=== PATIENT | female | born 1995 | race Caucasian/White ===

== ENCOUNTER 2020-03-04 11:44 | Inpatient (IN) | payer OTHER ==
[2020-03-04] MEDS ORDERED: hydrALAZINE 20 MG/ML VIAL SLOW IVP PRN ×2 (12:26→21:36)
[2020-03-04 12:27] VITALS: BMI 57.2
--- NOTE | 2020-03-04 13:08 | PDOC.FPROB ---
FMR OB H&P: HPI - History of Present Illness Chief Complaint: headache History of Present Illness: 24 y/o at 33.1 weeks sent to triage by Dr. Kauffman from clinic for evaluation of headache. She describes a 5/10 pressure like headache on the top of her head, onset last night, not relieved by fiorcet, with associated black spots in her vision prior to the onset of the headache. No changes in visual acuity, no further visual symptoms today. Endorses upper abdominal pain, worst in LUQ, and some lower abdominal cramping. Nausea but no vomiting. No sensitivity to light but some sensitivity to sound. Denies chest pain, SOB, palpitations, edema of face, hands, or legs, RUQ pain. Endorses good movement. No marcelino vaginal bleeding, LOF, contractions, vaginal discharge. She noticed some pink spotting on toilet tissue with wiping yesterday. Denies dysuria, hematuria. Does endorse some urinary frequency only occurring at nighttime. This has been complicated by multiple factors including homelessness, late to care, recent hospitalization for suspected pre-eclampsia, gestational diabetes. Per report, patient had 1T US performed possibly at [facility] ER in [place] and then presented for care in early 12/2019 during her 2T. She recalls having US for dating during 12/2019 or 01/2020. She has been homeless after from her in 06/2019. Denies history of physical or sexual trauma. She was recently hospitalized at [facility] in [place] from 02/18-02/22, where she initially went to the ED for upper abdominal pain and suicidal ideations. During that admission, she developed a headache and was reportedly diagnosed with pre-eclampsia. SI resolved and have not recurred since she recently moved in with family in [place]. No past attempts, no plan, no intent. She was discharged with rx for fiorcet and planned close outpatient f/u, but has recently moved to [place] to live with her step mother and her child from past . She plans to have her cousin adopt her child from current . Primary Care Physician: LAURA Kauffman FMR OB H&P: Current - Care : 2 Para: 1001 Gestational age: 33.1 Due date: 04/21/20 Dating Criteria: reported 1T US although records not available/late to care Course/Complications: Hospitalized at [facility] in [place] 02/18-02/22 for abdominal pain, suicidal ideations, headache. Diagnosed with pre-eclampsia, gestational DM during this hospitalization. Discharged with rx for fiorcet and plan for close outpatient f/u. - OB Labs Blood type: unknown RH: unknown Antibody Screen: unknown HIV: unknown RPR: unknown HepBsAg: unknown Quad screen: unknown Gonorrhea: unknown Chlamydia: unknown 1 hour gtt: 193 3 hour GTT: 97/192/144 FMR OB H&P: History - Past Medical History PMH: hypothyroid, depression, morbid obesity - OB History OB History: Hx 06/2018 - reports mIOL for pre-eclampsia; denies shoulder dystocia, assisted delivery; reports normal laceration; not diagnosed with GDM in past although hypoglycemia after delivery - OCEAN FISHING GUIDE History OCEAN FISHING GUIDE History: No known cattle dehorner history - Surgical History Sx History: Tonsillectomy, wisdom teeth - Social History Social History: Denies tobacco, etoh, or drug use in or before . from since 06/2019, pending divorce. Previously homeless in [place], now living with stepmother in [place] who keeps her child from her first . Denies trauma in past or current living situations. - Family History Family History: Maternal hx bipolar disorder, CKD, multiple MIs, DM, liver failure. No other known family hx. FMR OB H&P: Medications - Current Home Medications: Medication Instructions Recorded Confirmed Type Butalbital/Acetaminophen/Caffe 1 tab PO Q4HR PRN 03/04/20 03/04/20 History [Fioricet] Ferrous Gluconate 324 mg PO DAILY 03/04/20 03/04/20 History Levothyroxine Sodium 50 mcg PO DAILY 03/04/20 03/04/20 History Ondansetron [Ondansetron ODT] 4 mg PO Q4HR PRN 03/04/20 03/04/20 History Sertraline HCl 100 mg PO DAILY 03/04/20 03/04/20 History Allergies/Adverse Reactions: Allergies Allergy/AdvReac Type Severity Reaction Status Date / Time No Known Allergies Allergy Verified 03/04/20 12:15 FMR OB H&P: ROS - Review of Systems General: denies: fever/chills, night sweats, recent trauma Eyes: reports: scotomas ENT: denies: nasal congestion, rhinorrhea, sore throat Cardiovascular: denies: chest pain, palpitation, edema Respiratory: denies: cough, congestion, shortness of breath Gastrointestinal: reports: abdominal pain, cramping, nausea. denies: vomiting, diarrhea, constipation Genitourinary (Female): reports: polyuria. denies: dysuria, hematuria, vaginal discharge, vaginal pain, vaginal bleeding, contractions, vaginal pressure Musculoskeletal: denies: pain, swelling Neurologic: reports: headache. denies: numbness Integumentary: denies: rash Breast: denies: lumps, bumps, skin changes, nipple changes Hematologic/Lymphatic: denies: enlarged lymph nodes Psychological: reports: depression. denies: other (active suicidal ideation) FMR OB H&P: Vital Signs - Maternal Vital signs: BP 128/62, HR 100 - Heart Tones Baseline: 160 Variability: moderate Acceleration: present Deceleration: absent [place] contractions every: absent FMR OB H&P: Physical Exam - Physical Exam General: NAD, awake, alert and oriented HEENT: normocephalic and atraumatic, MMM, conjunctiva clear, no scleral icterus, grossly normal vision, grossly normal hearing, good dention Deviation from normal: white tongue Neck: supple, no LAD Chest: non-tender to palpation Heart: RRR, no murmurs/rubs/gallops, pulses present, no edema General: CTAB, no respiratory distress, no rales/rhonchi, no wheezing Abdomen: soft, gravid, bowel sound present Deviation from normal: mild epigastric and LUQ tenderness, obese Musculoskeletal: normal gait and station, pulses present, FROM in all four extremities Neurological: sensation to pain,touch and proprioception grossly normal, DTR +1, no clonus Skin: no rash, no jaundice Lymphatic: no unusual bruising or bleeding, no LAD Psychiatric: intact recent and remote memory, good judgement and insight, normal mood and affect - Pelvic Exam Vulva: normal hair distribution, no lesions, no blood Deviation from normal: yellow-green discharge on speculum exam Cervix: no blood Deviation from normal: strawberry cervix, visually dilated external os FMR OB H&P: A/P Disposition: sIUP @ 33.1 weeks - NOA 12/20/20 by LMP and unclear if 1T or 2T US performed in [place], records for this not currently available. - , hx in resulting in term male requiring NICU stay for respiratory problems, hypoglycemia, edema, jaundice per patient Hx pre-eclampsia Recent admission 02/18-02/22 at hospital in [place], [place] where she was evaluated for headache, discharged with diagnosis of pre-eclampsia. Also reporting hx of pre-eclampsia in previous . - Pre-eclampsia lab workup: CBC, CMP, urine protein/cr ratio - monitor blood pressure closely, treat >160/110 Headache Previously treated with fiorcet without relief. Symptoms concerning for migraine vs pre-eclampsia. - Will workup pre-eclampsia and monitor BP as above - Will treat with tylenol and monitor for improvement of symptoms - If not improved, consider reglan + benadryl Gestational DM Per 1 hr and 3 hr GTT. No currently on treatment. - consider accucheck pending CMP - consider addition of treatment pending labs Late to care First presented for care in 12/2019. Reported ED US in 1T prior to this. Records not currently available. - will get anatomy scan - will collect 1T labs: HIV, RPR, HbSAg, Hep C Ab, T+S, urine cx, G/CT swab, VP3, HSV, Varicella, Rubella, UDS Cervicitis Cervicitis visualized on speculum examination today without tenderness during swab collection. - collect urine, G/CT swab, VP3 as above tachycardia FHTs 160s with accels to 180s. - continue monitoring - maternal infectious workup as above Morbid Obesity BMI 57. Maternal weight gain this unknown. Depression Hx of suicidal ideations as recently as few weeks ago when she remained homeless. No further SI since moving with family in [place]. No past attempts, no plan or intent. - continue sertraline - continue to monitor for changes in mood, development of SI Hypothyroid - check TSH - continue levothyroxine Homelessness Previously homeless in [place]. from since 06/2019. Currently living with stepmother in [place] who cares for her first child. Denies trauma, drug use. Feels safe in current living situation. Plans to have cousin adopt baby. - will eventually need CM consult Discussed with Dr. Kan and Dr. Yi. Discussion: Date/Time: 03/04/20 1308 This H&P was discussed with [] and [] who agree with the above documentation and plan. Addendum - Attending - Attending Attestation Date/Time: 03/05/20 9452 I personally evaluated the patient and discussed the management with the team. I agree with the History, Examination, Assessment and Plan documented above with any addition or exceptions noted below. I spoke with Dr. Villeda from [place], who has seen the patient once. She tells me her 24 hour urine protein was 455 at the hospitalization, but we did not review pressures or other findings from the clinical course. The patient describes a history of what sounds like migraine headaches that she had before , and these are similar in nature but worse in severity. Retroorbital, pulsating, with a desire to be in a quiet and dark room. It apparently took them several days at [facility] in [place] to manage her headaches. Her pressures have all been normal, on the evening on 03/04. This is obviously difficult, as taking her BP accurately is fraught with difficulty in light of her super-morbid obesity. Her p/c ratio is elevated and she has overtly uncontrolled DM, which could be pregestational. We will admit, consult the tenant coordinator hospitalist rhinestone setter, monitor BPs, repeat a 24h urine protein, begin insulin, and manage her headache. My impression is that this is not preeclampsia with severe features, but we will obtain records from [facility] and remain vigilant. status is reassuring.
[2020-03-04 14:03] LABS: #Basophils 0.1 thou/uL (0.0-0.2); #Eosinphils 0.1 thou/uL (0.0-0.7); #Lymphocytes 1.6 thou/uL (1.20-3.40); #Monocytes 0.1 thou/uL (0.11-0.59); #Neutrophils 7.1 thou/uL (1.40-6.50); %Basophils 0.8 % (0.0-1.0); %Eosinophils 0.8 % (0.0-10.0); %Lymphocytes 17.9 % (21.0-51.0); %Monocytes 1.3 % (0.0-10.0); %Neutrophils 79.2 % (42.0-75.0); Hemoglobin 11.7 g/dL (12.0-16.0); Mean Corpuscular HGB CONC 34.8 g/dL (32.0-36.0); Mean Corpuscular Volume 83.5 fL (78.0-98.0); Mean Platelet Volume 10.2 fL (7.4-10.4); Platelet Count 274 thou/uL (130-400); Red Blood Cell (RBC) Count 4.02 mill/uL (4.20-5.40)
[2020-03-04] MEDS ORDERED: Acetaminophen 500 MG TAB PO SCH (14:15)
[2020-03-04 14:27] LABS: Hemoglobin A1c 7.7 % (4.0-6.0)
[2020-03-04 14:28] LABS: ALT (SGPT) 31 U/L (8-55); AST (SGOT) 29 U/L (5-34); Albumin 3.5 g/dL (3.5-5.0); Alkaline Phosphatase 151 U/L (40-110); Anion Gap 16 mmol/L (10-20); BUN (Urea Nitrogen) 10 mg/dL (7.0-18.7); Bilirubin, Total 0.3 mg/dL (0.2-1.2); Calc. Creatinine Clearance 362 mL/min (70-130); Carbon Dioxide 20 mmol/L (22-29); Chloride 101 mmol/L (98-107); Estimated GFR-MDRD Greater than 90; Globulin 4.2 g/dL (2.4-3.5); Glucose 122 mg/dL (70-105); Potassium 4.1 mmol/L (3.5-5.1); Protein, Total 7.7 g/dL (6.0-8.3); Sodium 133 mmol/L (136-145)
[2020-03-04 14:46] LABS: HBSAg Index 0.13 S/CO (0-0.99); HIV (1/2) Antibody/Antigen Non-Reactive (NonReactive); HIV 1/2 INDEX 0.09 S/CO (<1.00); Hep B Surf Ag Non-Reactive S/CO (NonReactive); Hep C IgG Ab Non-Reactive (NonReactive); Hep C Index 0.05 S/CO (0-0.79); Thyroid Stimulating Hormone 1.9816 uIU/mL (0.35-4.94)
[2020-03-04 14:50] LABS: Syphilis Antibody Index 14.95 S/CO (<1.00 Non-Reactive)
--- NOTE | 2020-03-04 15:05 | ULT ---
ULTRASOUND OBSTETRICAL COMPLETE: DATE: 03/04/2020 HISTORY: 24-year-old female. Evaluate anatomy. FINDINGS: Visualization of anatomy is limited because of maternal body habitus. Maternal adnexa: Not visualized number: paredes lie: Cephalic Maternal cervix: Not visualized, obscured. Placenta: Fundal. No placenta previa. Amniotic fluid volume: BRENDA = 13.5cm heart rate: 147 bpm The following anatomy is visualized, with no evidence of anomalies: Thoracic spine, sacrum, bladder, bilateral kidneys, cervical spine, lumbar spine, stomach. The rest of the anatomy is not visualized. biometry: Biparietal diameter (BPD): 8.4 cm 33 w 5 d Head circumference (HC): 29.8 cm 33 w 0 d Abdominal circumference (AC): 30.5 cm 34 w 3 d Femur length (FL): 6.5 cm 33 w 4 d Average ultrasound age (AUA): 33 w 5 d Estimated date of delivery (NOA): 04/17/2020 Estimated weight (EFW): 2310 g +/- 342 g IMPRESSION: 1) Live 3rd trimester intrauterine gestation. 2) Estimated gestational age of 33 weeks, 5 days 3) Vertex lie. 4) Limited study with poor visualization of anatomy due to maternal body habitus
[2020-03-04 15:06] LABS: Amphetamine Not Detected (NotDetected); Barbiturates Screen Detected (NotDetected); Benzodiazepine Screen Not Detected (NotDetected); Cocaine Metabolite Screen Not Detected (NotDetected); Medtox Control Line Valid? VALID (VALID); Medtox Reader # READER 1; Methadone Not Detected (NotDetected); Methamphetamine Not Detected (NotDetected); Opiate Screen Not Detected (NotDetected); Oxycodone Screen Not Detected (NotDetected); Phencyclidine (PCP) Not Detected (NotDetected); THC/Cannabinoid Screen Not Detected (NotDetected); Tricyclic Screen Not Detected (NotDetected)
[2020-03-04 15:30] LABS: Creatinine, Urine 190.31 mg/dL (47-110)
[2020-03-04] MEDS ORDERED: diphenhydrAMINE 50 MG/ML VIAL IVP PRN (16:32)
[2020-03-04] MEDS: Metoclopramide HCl 10 MG/2 ML VIAL IVP PRN ×5 (16:48→19:42)
[2020-03-04] MEDS ORDERED: diphenhydrAMINE 50 MG/ML VIAL ONE ×3 (17:59→18:12)
[2020-03-04] MEDS: Lactated Ringer's 1,000 ML IV SCH ×2 (18:00→18:35)
--- NOTE | 2020-03-04 18:12 | PDOC.BPN ---
- Brief Progress Note Headache persistent s/p 1 dose tylenol, reglan, benadryl. Will increase reglan/benadryl frequency for next 2 hours as needed. Started metronidazole for BV. Consulted Ob Dr. Gant, appreciate help with this case. Has had one BP >140/90 but no severe range pressures. Urine protein/cr ratio 0.74 Requested records from [facility]. Parvez Mcintyre PGY1
[2020-03-04] MEDS: diphenhydrAMINE 50 MG/ML VIAL IVP SCH ×2 (18:15→19:16)
[2020-03-04] MEDS ORDERED: Magnesium Sulfate 3 GM in Sodium Chloride 0.9% 100 ML IVPB SCH (19:45)
[2020-03-04] MEDS: metroNIDAZOLE 500 MG TAB PO SCH (20:27)
[2020-03-04 22:49] LABS: Syphilis Antibody INDETERMINATE (Nonreactive)
--- NOTE | 2020-03-05 01:08 | CON ---
DATE OF CONSULTATION: 03/04/2020 CHIEF COMPLAINT: Headache. HISTORY OF PRESENT ILLNESS: The patient is a 24-year-old G2, P1 female with an intrauterine at 33 weeks and 1 day, was referred to the hospital from her clinic visit today, where she received her first visit here locally. The patient was sent to the hospital for concerns of headache in the setting of a previous diagnosis of mild preeclampsia. The patient reports that she was diagnosed with mild preeclampsia, gestational diabetes, depression during a hospitalization up in [place] recently. She has expressed suicidal ideation at that time. Patient's social history is complicated by a recent break-up with her where she was found homeless, which has recently been resolved by moving in with her stepmother in [place], [place]. The patient reports that her headache began yesterday. She reports it as being on the top and frontal part of her head, pulsatile, worse with activity and movement, light sensitive and sound sensitive with accompanying nausea. The patient reports she is having difficulty sleeping, but denies any excessive stress where she is currently staying. The patient has been taking daily Fioricet which was prescribed to her from the hospitalization recently. She takes it mainly at night before she goes to bed. In asking about her intake today, she said that she has only had a can of Pepsi and something small to eat. She also reports that she drinks plenty of water. She also reports that she checks her blood sugars fasting and 2-hour postprandial, but has a difficult time reporting what those blood sugars are. The patient denies fever, cough, chest pain, shortness of breath. She does report some vision changes. She reports nausea. Denies vomiting. Denies constipation or diarrhea. Denies any new rashes, hip problems, knee problems, muscle weakness. Denies change in discharge, vaginal bleeding or leakage of fluid, urinary urgency or frequency. PAST MEDICAL HISTORY: Complicated by preeclampsia with hospitalization; late entry to care; gestational diabetes, diet controlled; depression with history of suicidal ideation; thyroid disorder; and anemia. PAST SURGICAL HISTORY: Tonsillectomy and wisdom teeth extraction. OB HISTORY: The patient reports a previous term delivery with an antepartum course complicated and was seen by high-risk physician, but unsure why. SOCIAL HISTORY: Denies drug, alcohol, or tobacco use. She is currently living with her stepmother and is pending divorce. PHYSICAL EXAMINATION: VITAL SIGNS: Blood pressures from her stay have ranged from one teens to 130s over 60s and 70s. She has had one elevated pressure at 144/64, which is very isolated. Pulses have ranged in the 70s to 100s, saturating 98% on room air. GENERAL: She appears to be in no acute distress. She is alert, oriented, cooperative, and pleasant to interact. HEENT: Head is normocephalic and atraumatic. LUNGS: Clear to auscultation bilaterally. HEART: Regular rate and rhythm. ABDOMEN: Gravid, soft, nontender. EXTREMITIES: Nontender, nonedematous. heart tracing shows the fetus with a baseline in the 150s with moderate long-term variability, positive 15 x 15 accelerations. Tocometer shows some irritability, but no contraction pattern. ultrasound today shows fetus in vertex presentation, approximately 2300 g. LABORATORY DATA: White count of 9, hemoglobin 11.7, hematocrit 33.6, and platelets of 274,000. Sodium 133, potassium 4.1, BUN 16, creatinine 0.65, glucose of 122. Hemoglobin A1c of 7.7, calcium of 9.0, AST of 29, ALT of 31. TSH of 1.98. Total random protein of 145. Total urine creatinine of 190 with a ratio of approximately 0.7. Urinalysis, drug screen is positive for barbiturates. Serology shows syphilis indeterminate test screening with RPR titer of 1-2. Confirmatory testing is pending. Hepatitis B surface antigen is nonreactive. Hepatitis C antibody is nonreactive. HIV is nonreactive. ASSESSMENT AND PLAN: The patient is a 24-year-old female with a previous diagnosis at a previous hospitalization of mild preeclampsia, new onset gestational diabetes, depression, suicidal ideation. Given her late entry to care and her complicated social history, it is unclear whether this history of mild preeclampsia is truly her diagnosis or if this is evidence of chronic hypertension or if she truly has mild preeclampsia with proteinuria. The patient's blood pressures here have been within normal limits. She has no clear evidence of worsening disease or even clear evidence of mild preeclampsia. She does have a proteinuria which may or may not be related to her blood pressures directly as a complication. She may actually have chronic hypertension with proteinuria just not diagnosed in time to make that clear decision. Unfortunately, the patient's headache, which classically sounds like migraine headache, was unsuccessfully treated with Reglan and Benadryl protocol. She also was bolused 3 g of magnesium and reports that that also did not resolve her headache. The patient does not appear to be in any distress. However, given her unclear history and the presence of her headache, recommendations of the patient to be put in observation until those records can be obtained and better understanding of her history be ascertained. Diagnosis of preeclampsia is in question. Patient's headache seems to be unrelated and by history sounds to be more consistent with migraine headache. Of concern in her lab work is the proteinuria, but also her blood sugar readings. During her stay, the patient can get good blood sugar control. Once her records can be acquired, review of that information will be important with determining future course. If the patient is demonstrating preeclampsia with severe features due to headache, indication would be delivery. Job ID: [id number] [facility]
[2020-03-05] MEDS ORDERED: Dextrose 50% Abboject 50 ML SYRINGE SLOW IVP PRN (04:46)
[2020-03-05] MEDS ORDERED: Dextrose 5% in Water 1,000 ML IV PRN (04:46)
[2020-03-05] MEDS: HumaLOG 300 UNITS/3 ML VIAL SC PRN ×2 (04:56→21:24)
[2020-03-05] MEDS: Lactated Ringer's 1,000 ML IV SCH ×2 (05:27→13:30)
[2020-03-05] MEDS ORDERED: Acetaminophen 500 MG TAB PO SCH (06:15)
[2020-03-05] MEDS ORDERED: diphenhydrAMINE 50 MG/ML VIAL ONE (06:20)
[2020-03-05] MEDS: Metoclopramide HCl 10 MG/2 ML VIAL IVP PRN (06:26)
[2020-03-05] MEDS ORDERED: diphenhydrAMINE 25 MG in Sodium Chloride 0.9% 50 ML IVPB SCH (06:45)
[2020-03-05] MEDS ORDERED: diphenhydrAMINE 50 MG/ML VIAL IVP SCH (07:00)
--- NOTE | 2020-03-05 08:29 | PDOC.FM ---
- Subjective Subjective: No acute overnight events. She has continued to have headache despite mulitple doses of benadryl, reglan, and tylenol, although she does report that her headache is improved from a 10/10 to a 5/10 with her most recent dose of tylenol/bendaryl/reglan around 0630 this AM. She denies any chest pain, SOB, abdominal pain, swelling, further vision symptoms. - Objective MAR Reviewed: Yes Vital Signs & Weight: Vital Signs (12 hours) Temp 03/04/20 21:35 98.3 F Weight Weight 170.551 kg Result Diagrams: 03/04/20 13:49 03/04/20 13:48 EKG Reviewed by me: Yes Phys Exam - Physical Examination Constitutional: NAD appears tired HEENT: moist MMs Neck: supple Respiratory: clear to auscultation bilateral Cardiovascular: RRR, no significant murmur Gastrointestinal: soft, non-tender gravid Musculoskeletal: no edema, pulses present Neurological: non-focal, moves all 4 limbs patellar reflexes 1+ bilat, no clonus Psychiatric: normal affect, A&O x 3 Skin: no rash Dx/Plan - Plan Plan: sIUP @ 33.1 weeks - NOA 04/21/20 by LMP and unclear if 1T or 2T US performed in [place], records for this not currently available. - , hx in resulting in term male requiring NICU stay for respiratory problems, hypoglycemia, edema, jaundice per patient Hx pre-eclampsia Recent admission 02/18-02/22 at hospital in [place], [place] where she was evaluated for headache, discharged with diagnosis of pre-eclampsia. Also reporting hx of pre-eclampsia in previous . Workup so far significant for elevated pr/cr ratio of 0.74, other labs wnl. Unclear if this is chronic HTN with proteinuria vs pre-eclampsia w/severe features. - consulted packaging machine supplies distributor, appreciate recommendations - f/u records request - continue to monitor BP, tx >160/100. One BP 144/64, the rest have been wnl, most recent 118/55. - check 24 h urine protein Hx syphilis Known hx syphilis in 2014 which was treated and most recent titer 1:2 per report. - repeat titer 1:2 this admission Headache Previously treated with fiorcet without relief. Symptoms concerning for migraine vs pre-eclampsia. Persistent headache despite tx with tylenol/reglan/benadryl, although improving. - continue prn treatment - f/u records for recent w/u in [place] Gestational DM Per 1 hr and 3 hr GTT. Not currently on treatment. Hga1c 7.7%. - added SSI overnight - will discuss starting metformin vs insulin with patient today Late to care First presented for care in 12/2019. Reported ED US in 1T prior to this. Records not currently available. - will get anatomy scan - Neg: UDS, HIV, HbSAg, Hep C Ab - f/u 1T labs :urine cx, G/CT swab, HSV, Varicella, Rubella Bacterial vaginitis Noted on VP3 - started metronidazole 500 mg BID x 7 days (03/04) Cervicitis Cervicitis visualized on speculum examination today without tenderness during swab collection. - collect urine, G/CT swab, VP3 as above tachycardia, resolved FHT now 135/mod variability/+accels - continue monitoring Morbid Obesity BMI 57. Maternal weight gain this unknown. Depression Hx of suicidal ideations as recently as few weeks ago when she remained jeremiah eless. No further SI since moving with family in [place]. No past attempts, no plan or intent. - continue sertraline - continue to monitor for changes in mood, development of SI Hypothyroid - check TSH - continue levothyroxine Homelessness Previously homeless in [place]. from since 06/2019. Currently living with stepmother in [place] who cares for her first child. Denies trauma, drug use. Feels safe in current living situation. Plans to have cousin adopt baby. - will eventually need CM consult Addendum - Attending - Attending Attestation Date/Time: 03/05/20 5002 I personally evaluated the patient and discussed the management with the team. I agree with the History, Examination, Assessment and Plan documented above with any addition or exceptions noted below. The patient tells me her headache is gone currently. No SAMANTA/RUQ pain. She is feeling good. Await records, monitor BP, complete 24h urine. Qshift NST (mBPP normal yesterday) and likely BPP prior to dc if she meets criteria.
[2020-03-05] MEDS ORDERED: Non-Formulary Item 1 EACH (Ferrous Gluconate [Ferrous Gluconate] 324 MG Tablet) PO SCH (09:00)
[2020-03-05] MEDS: Ferrous Gluconate 324 MG TAB PO SCH (09:03)
[2020-03-05] MEDS: Levothyroxine Sodium 50 MCG TAB PO SCH (09:04)
[2020-03-05] MEDS: metroNIDAZOLE 500 MG TAB PO SCH ×2 (09:07→21:22)
[2020-03-05] MEDS ORDERED: Insulin Glargine 40 UNITS in Pre-Filled Syringe 1 EACH SC SCH ×2 (10:32→10:45)
[2020-03-05] MEDS ORDERED: HumaLOG 300 UNITS/3 ML VIAL SC SCH ×2 (10:45→17:00)
--- NOTE | 2020-03-05 14:26 | PDOC.BPN ---
- Brief Progress Note Encounter Date: 03/05/20 Encounter Time: 12:00 Received partial records from [facility] in [place], on paper chart. [facility] has been contacted to request the remainder of the record not yet sent. Significant findings: sIUP: - Documented US performed on 10/25/19 with estimated due date of 04/15/20 by this 14.6 wk sono. This changes her dating from 33.2 wks today to 34.1 wks today. Hx Pre-eclampsia: - Protein/Cr ratio at recent 02/18-02/22 admission was 0.64, similar to protein/cr ratio of 0.74 here. - Intermittently elevated blood pressures with SBP in 140s dating back as far as 07/2019, before , suggesting patient may have undiagnosed cHTN before . Gestational DM: - BS of 126 in 07/2019. This is in isolation is not diagnostic of type 2 DM but suggest she may have had undiagnosed T2DM prior to . - Today, started lantus 40u qAM and 5u humalog w/ meals. Check fasting AM and 2 hr post-prandial BS. Will adjust therapy as needed. Depression w/SI: - Admitted inpatient for suicidal ideations in 07/2019. At that time, patient admitted history of past suicide attempts and plan including overdose or jumping from bridge. Per records, she has attempted cutting herself in the past. B. Rehg, PGY-1
[2020-03-05] MEDS ORDERED: Insulin Regular 300 UNITS/3 ML VIAL SC PRN (21:10)
[2020-03-05] MEDS ORDERED: Melatonin 3 MG TAB PO PRN (21:12)
[2020-03-05] MEDS ORDERED: HumaLOG 300 UNITS/3 ML VIAL SC PRN (22:14)
[2020-03-05 23:26] LABS: Urine Total Volume 3960 mL (600-1600)
[2020-03-05 23:45] LABS: Protein, Urine Less than 10 mg/dL (1-14)
[2020-03-06] MEDS: Metoclopramide HCl 10 MG/2 ML VIAL IVP PRN ×2 (00:47→14:06)
[2020-03-06] MEDS: metroNIDAZOLE 500 MG TAB PO SCH ×2 (08:47→19:11)
[2020-03-06] MEDS: Ferrous Gluconate 324 MG TAB PO SCH (08:47)
[2020-03-06] MEDS: Levothyroxine Sodium 50 MCG TAB PO SCH (08:48)
[2020-03-06] MEDS ORDERED: Insulin Glargine 40 UNITS in Pre-Filled Syringe 1 EACH SC SCH (09:00)
[2020-03-06] MEDS ORDERED: Insulin Glargine 50 UNITS in Pre-Filled Syringe 1 EACH SC SCH (09:00)
--- NOTE | 2020-03-06 09:19 | PDOC.FM ---
- Subjective Subjective: Headache overnight, now resolved with pharmacologic tx. No chest pain, SOB, abd pain, edema this AM. No concerns. Reports moods are doing ok, denies depression or SI. - Objective Vital Signs & Weight: Weight Weight 170.551 kg Result Diagrams: 03/07/20 05:44 03/07/20 05:44 Phys Exam - Physical Examination Constitutional: NAD HEENT: moist MMs, sclera anicteric Neck: supple Respiratory: clear to auscultation bilateral Cardiovascular: RRR Gastrointestinal: soft, non-tender Musculoskeletal: no edema, pulses present Neurological: non-focal, moves all 4 limbs 1+ bilat patellar reflexes, no clonus Psychiatric: normal affect, A&O x 3 Deviation from normal: denies mood problems, SI Skin: no rash Dx/Plan - Plan Plan: sIUP @ 33.1 weeks - NOA 04/21/20 by LMP and unclear if 1T or 2T US performed in [place], records for this not currently available. - , hx in resulting in term male requiring NICU stay for respiratory problems, hypoglycemia, edema, jaundice per patient Hx pre-eclampsia Recent admission 02/18-02/22 at hospital in [place], [place] where she was evaluated for headache, discharged with diagnosis of pre-eclampsia. Also reporting hx of pre-eclampsia in previous . Workup so far significant for elevated pr/cr ratio of 0.74, other labs wnl. Unclear if this is chronic HTN with proteinuria vs pre-eclampsia w/severe features. - consulted legal executive assistant, appreciate recommendations - f/u records request - continue to monitor BP, tx >160/100. One BP 144/64, the rest have been wnl during this admission. -24 hr urine protein collected, "test not performed" in results, will clarify with lab Hx syphilis Known hx syphilis in 2014 which was treated and most recent titer 1:2 per report. - repeat titer 1:2 this admission Headache Now resolved after tx with tylenol, reglan, benadryl. Previously treated with fiorcet without relief. Symptoms concerning for migraine vs pre-eclampsia. - continue prn treatment - f/u records for recent w/u in [place] Gestational DM A2 Per 1 hr and 3 hr GTT. Not on treatment on admission, insulin naive. Hga1c 7.7%. Started on 40u lantus with 10u short acting WM yesterday, remained above goal. - increased to 50 u lantus this AM - short acting meal time increased to 15 u to be given within 5 min of eating to avoid hypoglycemia - accuchecks qAM and 2 hr post prandial - adjust insulin pending accuchecks - CM consulted for help with diabetic supplies, will need outpatient insulin tx Late to care First presented for care in 12/2019. Reported ED US in 1T prior to this. Partial records sent despite multiple requests. Anatomy scan performed and limited due to patient body habitus. Spine, bladder, kidneys, stomach wnl. Heart and other structures not visualized. Miller cephalic fetus. - Neg: UDS, HIV, HbSAg, Hep C Ab, urine cx - f/u 1T labs : G/CT swab, HSV, Varicella, Rubella - GBS pending Bacterial vaginitis Noted on VP3 - started metronidazole 500 mg BID x 7 days (03/04) Cervicitis Cervicitis visualized on speculum examination today without tenderness during swab collection. - collect urine, G/CT swab, VP3 as above tachycardia, resolved FHT now 135/mod variability/+accels - continue monitoring Morbid Obesity BMI 57. Maternal weight gain this unknown. Depression Hx of suicidal ideations as recently as few weeks ago when she remained homeless. No further SI since moving with family in [place]. No past attempts, no plan or intent. - continue sertraline - continue to monitor for changes in mood, development of SI Hypothyroid - check TSH - continue levothyroxine Homelessness Previously homeless in [place]. from since 06/2019. Currently living with stepmother in [place] who cares for her first child. Denies trauma, drug use. Feels safe in current living situation. Plans to have cousin adopt baby. - CM consulted Addendum - Attending - Attending Attestation Date/Time: 03/07/20 0832 I personally evaluated the patient and discussed the management with the team. I agree with the History, Examination, Assessment and Plan documented above with any addition or exceptions noted below. Reassuring pressures. Headache resolved. 24h urine protein negative, suggesting initial proteinuria may not be 2/2 preeclampsia but cHTN vs uncontrolled DM. Continue to titrate insulin for uncontrolled gDM vs BDM.
[2020-03-06] MEDS: HumaLOG 300 UNITS/3 ML VIAL SC SCH ×3 (10:01→19:12)
[2020-03-06 12:01] LABS: #Eosinphils 0.1 thou/uL (0.0-0.7); #Lymphocytes 1.4 thou/uL (1.20-3.40); #Monocytes 0.3 thou/uL (0.11-0.59); #Neutrophils 6.4 thou/uL (1.40-6.50); %Eosinophils 0.8 % (0.0-10.0); %Lymphocytes 17.4 % (21.0-51.0); %Monocytes 3.7 % (0.0-10.0); Hemoglobin 10.8 g/dL (12.0-16.0); Mean Corpuscular Hemoglobin 28.2 pg (27.0-31.0); Mean Corpuscular Volume 85.5 fL (78.0-98.0); Mean Platelet Volume 10.3 fL (7.4-10.4); Platelet Count 247 thou/uL (130-400); RBC Distribution Width 15.2 % (11.5-14.5); Red Blood Cell (RBC) Count 3.82 mill/uL (4.20-5.40); White Blood Cell (WBC) Count 8.3 thou/uL (4.8-10.8)
[2020-03-06 12:38] LABS: ALT (SGPT) 27 U/L (8-55); AST (SGOT) 33 U/L (5-34); Albumin 3.2 g/dL (3.5-5.0); Alkaline Phosphatase 146 U/L (40-110); Anion Gap 16 mmol/L (10-20); BUN (Urea Nitrogen) 8 mg/dL (7.0-18.7); Bilirubin, Total 0.3 mg/dL (0.2-1.2); Calc. Creatinine Clearance 393 mL/min (70-130); Calcium 8.9 mg/dL (7.8-10.44); Carbon Dioxide 20 mmol/L (22-29); Chloride 101 mmol/L (98-107); Estimated GFR-MDRD Greater than 90; Globulin 3.9 g/dL (2.4-3.5); Glucose 158 mg/dL (70-105); Potassium 3.9 mmol/L (3.5-5.1); Protein, Total 7.1 g/dL (6.0-8.3); Sodium 133 mmol/L (136-145)
[2020-03-06 13:00] LABS: SARS-CoV-2 MS2 Positive; SARS-CoV-2 N Gene Negative; SARS-CoV-2 S Gene Negative; SARS-CoV-2 by NAA Not Detected (NotDetected); SARS-CoV-2 orf1ab Negative
[2020-03-06] MEDS ORDERED: diphenhydrAMINE 50 MG/ML VIAL IVP PRN (13:32)
[2020-03-06] MEDS ORDERED: HumaLOG 300 UNITS/3 ML VIAL SC SCH (14:30)
[2020-03-06] MEDS: Acetaminophen 500 MG TAB PO PRN (17:44)
--- NOTE | 2020-03-06 18:31 | ULT ---
BIOPHYSICAL PROFILE: 03/06/20 COMPARISON: 24-year-old female. TECHNIQUE: Multiplanar woods scale sonographic imaging of the gravid uterus obtained. FINDINGS: The region of the cervix is not well assessed on this exam. The placenta is grossly unremarkable with no evidence for previa or abruption. Single intrauterine gestation present demonstrating a vertex pr esentation per the preforming pulp cooker. heart rate is 143 beats per minute. Amniotic fluid i ndex is 18.3 cm. The pulp cooker reports a 2 out of 2 score for tone, breathing, movement, and amnio tic fluid. IMPRESSION: 8 out of 8 biophysical profile score. POS: JWCyndy
[2020-03-06 21:40] LABS: ALT (SGPT) 27 U/L (8-55); AST (SGOT) 29 U/L (5-34); Albumin 3.2 g/dL (3.5-5.0); Alkaline Phosphatase 151 U/L (40-110); Anion Gap 17 mmol/L (10-20); BUN (Urea Nitrogen) 7 mg/dL (7.0-18.7); Bilirubin, Total 0.2 mg/dL (0.2-1.2); Calc. Creatinine Clearance 352 mL/min (70-130); Calcium 8.9 mg/dL (7.8-10.44); Carbon Dioxide 20 mmol/L (22-29); Chloride 100 mmol/L (98-107); Estimated GFR-MDRD Greater than 90; Globulin 3.9 g/dL (2.4-3.5); Glucose 174 mg/dL (70-105); Lipase 101 U/L (8-78); Potassium 3.7 mmol/L (3.5-5.1); Protein, Total 7.1 g/dL (6.0-8.3); Sodium 133 mmol/L (136-145)
[2020-03-06] MEDS ORDERED: Morphine 2 MG/ML VIAL SLOW IVP PRN ×2 (22:39→23:20)
--- NOTE | 2020-03-06 22:56 | ULT ---
Exam: Right upper quadrant ultrasound: HISTORY: Epigastric abdominal pain. COMPARISON: None FINDINGS: Liver: Increased echogenicity suggesting hepatic steatosis. The liver is enlarged measuring 26.9 cm i n craniocaudal dimensions. There is limited evaluation of the liver due to the hepatic steatosis, but no definite focal hepatic lesion is appreciated. Gallbladder: No evidence of gallbladder calculi, gallbladder wall thickening, or pericholecystic flui d. Common bile duct: The common duct is normal in caliber measuring 0.4 cm in diameter. Pancreas: Mostly obscured secondary to shadowing from bowel gas. Right kidney: Right kidney demonstrates a normal sonographic appearance. The right kidney measures 1 3.1 cm in length. IVC: The visualized IVC demonstrates a normal sonographic appearance. IMPRESSION: 1. Hepatomegaly with liver measuring 26.9 cm in craniocaudal dimensions and evidence of hepatic steat osis. 2. No gallbladder calculi are seen, and the common duct is normal in caliber.
--- NOTE | 2020-03-06 22:57 | PDOC.BPN ---
- Brief Progress Note Encounter Date: 03/06/20 Encounter Time: 10:30 Was contacted by patient's nurse regarding abdominal pain. Assessed patient who explained she was experiencing stabbing epigastric pain that was radiating to her back and worse when eating. The pain felt similar to episodes of pancreatitis she has had previously with this and the one before. CMP, lipase, RUQ ultrasound order which revealed lipase of 101, normal LFTs, and normal gallbladder. Official read on RUQ ultrasound not yet available. After further discussion with Dr. Stephens decided to initiate treatment for pancreatitis: made patient NPO, fluids, morphine for pain. Will check CBC and lipids. Recheck CBC, CMP in AM.
[2020-03-06 23:17] LABS: #Basophils 0.1 thou/uL (0.0-0.2); #Eosinphils 0.1 thou/uL (0.0-0.7); #Lymphocytes 1.9 thou/uL (1.20-3.40); #Monocytes 0.5 thou/uL (0.11-0.59); #Neutrophils 4.6 thou/uL (1.40-6.50); %Basophils 0.7 % (0.0-1.0); %Eosinophils 1.4 % (0.0-10.0); %Lymphocytes 26.7 % (21.0-51.0); %Monocytes 6.9 % (0.0-10.0); %Neutrophils 64.3 % (42.0-75.0); Hemoglobin 10.6 g/dL (12.0-16.0); Mean Corpuscular HGB CONC 33.6 g/dL (32.0-36.0); Mean Corpuscular Hemoglobin 28.4 pg (27.0-31.0); Mean Corpuscular Volume 84.5 fL (78.0-98.0); Mean Platelet Volume 10.4 fL (7.4-10.4); Platelet Count 253 thou/uL (130-400); RBC Distribution Width 15.2 % (11.5-14.5); Red Blood Cell (RBC) Count 3.73 mill/uL (4.20-5.40); White Blood Cell (WBC) Count 7.2 thou/uL (4.8-10.8)
[2020-03-06 23:36] LABS: Cardiac Risk 11.8 (Less than 4.5)
[2020-03-06] MEDS: Morphine 4 MG/ML VIAL SLOW IVP PRN (23:53)
[2020-03-06] MEDS: Lactated Ringer's 1,000 ML IV SCH (23:54)
[2020-03-07] MEDS: Acetaminophen 500 MG TAB PO PRN (03:10)
[2020-03-07] MEDS: Lactated Ringer's 1,000 ML IV SCH ×4 (03:12→17:37)
[2020-03-07] MEDS: Morphine 4 MG/ML VIAL SLOW IVP PRN ×4 (03:50→19:39)
[2020-03-07 06:00] LABS: #Basophils 0.1 thou/uL (0.0-0.2); #Eosinphils 0.1 thou/uL (0.0-0.7); #Lymphocytes 1.8 thou/uL (1.20-3.40); #Monocytes 0.4 thou/uL (0.11-0.59); #Neutrophils 4.8 thou/uL (1.40-6.50); %Basophils 0.9 % (0.0-1.0); %Eosinophils 1.4 % (0.0-10.0); %Monocytes 5.5 % (0.0-10.0); %Neutrophils 67.3 % (42.0-75.0); Hemoglobin 10.2 g/dL (12.0-16.0); Mean Corpuscular HGB CONC 33.4 g/dL (32.0-36.0); Mean Corpuscular Hemoglobin 28.3 pg (27.0-31.0); Mean Corpuscular Volume 84.8 fL (78.0-98.0); Platelet Count 246 thou/uL (130-400); RBC Distribution Width 15.2 % (11.5-14.5); Red Blood Cell (RBC) Count 3.61 mill/uL (4.20-5.40); White Blood Cell (WBC) Count 7.2 thou/uL (4.8-10.8)
[2020-03-07 06:26] LABS: ALT (SGPT) 24 U/L (8-55); AST (SGOT) 26 U/L (5-34); Albumin 2.9 g/dL (3.5-5.0); Alkaline Phosphatase 134 U/L (40-110); Anion Gap 14 mmol/L (10-20); BUN (Urea Nitrogen) 6 mg/dL (7.0-18.7); Bilirubin, Total 0.2 mg/dL (0.2-1.2); Calc. Creatinine Clearance 406 mL/min (70-130); Calcium 8.7 mg/dL (7.8-10.44); Carbon Dioxide 21 mmol/L (22-29); Chloride 103 mmol/L (98-107); Estimated GFR-MDRD Greater than 90; Globulin 3.4 g/dL (2.4-3.5); Glucose 101 mg/dL (70-105); Lipase 49 U/L (8-78); Potassium 3.7 mmol/L (3.5-5.1); Protein, Total 6.3 g/dL (6.0-8.3); Sodium 134 mmol/L (136-145)
--- NOTE | 2020-03-07 08:07 | PDOC.FM ---
- Subjective Subjective: Overnight developed epigastric/LUQ pain. Patient made NPO due to concern for pancreatitis, RUQ US performed with no GB pathology. this morning, she is still having some abdominal pain which is somewhat improved from last night. denies reflux, sour taste in the mouth. she has some appetite this AM. - Objective Vital Signs & Weight: Vital Signs (12 hours) Temp Pulse Resp BP Pulse Ox 03/07/20 07:42 98.4 F 83 20 121/59 L 96 03/07/20 03:16 98.0 F 82 18 102/70 03/06/20 23:56 98.1 F 84 18 128/80 Weight Weight 170.551 kg I&O: 03/06/20 03/07/20 03/08/20 06:59 06:59 06:59 Output Total 500 Balance -500 Result Diagrams: 03/07/20 05:44 03/07/20 05:44 Dx/Plan - Plan Plan: sIUP @ 34.3 weeks - NOA 04/15/20 per US performed 10/25/19 in records from - , hx in resulting in term male requiring NICU stay for respiratory problems, hypoglycemia, edema, jaundice per patient - GBS pos on screen collected 03/04/20 Hx pre-eclampsia Recent admission 02/18-02/22 at hospital in [place], [place] where she was evaluated for headache, discharged with diagnosis of pre-eclampsia. Also reporting hx of pre-eclampsia in previous . Workup so far significant for elevated pr/cr ratio of 0.74, other labs wnl. Unclear if this is chronic HTN with proteinuria vs pre-eclampsia w/severe features. - consulted featherer, appreciate recommendations - f/u records request - continue to monitor BP, tx >160/100. One BP 144/64, the rest have been wnl during this admission. -24 hr urine protein collected, "test not performed" in results, will clarify with lab Abd pain r/o pancreatitis Mildly elevated lipase with abdominal pain. Kept NPO overnight. Hx pancreatitis in past and early in this per patient. Elevated triglycerides. No GB pathology on RUQ US. Lipase not 3 x upper limit normal, low suspicion for true pancreatitis. - advance diet as tolerated today and monitor sx Hypertriglyceridemia Recommend dietary intervention Hepatic steatosis RUQ revealing hepatomegaly, hepatic steatosis. Suspect NAFLD. Hx syphilis Known hx syphilis in 2014 which was treated and most recent titer 1:2 per report. - repeat titer 1:2 this admission Headache Now resolved after tx with tylenol, reglan, benadryl. Previously treated with fiorcet without relief. Symptoms concerning for migraine vs pre-eclampsia. - continue prn treatment - f/u records for recent w/u in [place] Gestational DM A2 Per 1 hr and 3 hr GTT. Not on treatment on admission, insulin naive. Hga1c 7.7%. Started on 40u lantus with 10u short acting WM yesterday, remained above goal. - increased lantus to 50 u yesterday, will decrease to 40 u today due to decreased PO intake while NPO; continue humalog 20 u w/meals - accuchecks qAM and 2 hr post prandial - will need to be on 50 u lantus qAM upon discharge Late to care First presented for care in 12/2019. Reported ED US in 1T prior to this. Partial records sent despite multiple requests. Anatomy scan performed and limited due to patient body habitus. Spine, bladder, kidneys, stomach wnl. Heart and other structures not visualized. Miller cephalic fetus. - Neg: UDS, HIV, HbSAg, Hep C Ab, urine cx - f/u 1T labs : G/CT swab, HSV, Varicella, Rubella - GBS postive 03/04/20 Varicella non-immune Equivocal titer not meeting threshold for immunity. Will need post vaccination. Bacterial vaginitis Noted on VP3 - started metronidazole 500 mg BID x 7 days (03/04) Cervicitis Cervicitis visualized on speculum examination today without tenderness during swab collection. - collect urine, G/CT swab, VP3 as above tachycardia, resolved FHT now 135/mod variability/+accels. All monitoring has been reassuring, now discontinued. Morbid Obesity BMI 57. Maternal weight gain this unknown. Depression Hx of suicidal ideations as recently as few weeks ago when she remained homeless. No further SI since moving with family in [place]. No past attempts, no plan or intent. - continue sertraline - continue to monitor for changes in mood, development of SI Hypothyroid - check TSH - continue levothyroxine Homelessness Previously homeless in [place]. from since 06/2019. Currently living with stepmother in [place] who cares for her first child. Denies trauma, drug use. Feels safe in current living situation. Plans to have cousin adopt baby. - CM consulted Addendum - Attending - Attending Attestation Date/Time: 03/07/20 [id number] I personally evaluated the patient and discussed the management with the team. I agree with the History, Examination, Assessment and Plan documented above with any addition or exceptions noted below. Patient with relatively negative workup for preeclampsia, and certainly for severe features. She is c/o stomach/back pain this morning and vomited x 1. Will continue to titrate insulin in light of now NPO status and monitor.
[2020-03-07] MEDS: HumaLOG 300 UNITS/3 ML VIAL SC SCH ×3 (09:00→17:35)
[2020-03-07] MEDS: Ferrous Gluconate 324 MG TAB PO SCH (09:16)
[2020-03-07] MEDS: metroNIDAZOLE 500 MG TAB PO SCH ×2 (09:16→19:39)
[2020-03-07] MEDS: Levothyroxine Sodium 50 MCG TAB PO SCH (09:17)
[2020-03-07] MEDS: Ondansetron PF 4 MG/2 ML Vial IVP PRN ×2 (12:27→19:39)
[2020-03-07] MEDS: Insulin Glargine 40 UNITS in Pre-Filled Syringe 1 EACH SC SCH (12:28)
[2020-03-07] MEDS ORDERED: Lidocaine 2% Viscous Solution 10 ML, Aluminum & Magnesium Hydroxide 30 ML SSW SCH (12:45)
[2020-03-07] MEDS: Famotidine 20 MG TAB PO SCH (19:39)
[2020-03-08] MEDS: Morphine 4 MG/ML VIAL SLOW IVP PRN (01:14)
[2020-03-08] MEDS: Lactated Ringer's 1,000 ML IV SCH ×2 (01:16→04:51)
--- NOTE | 2020-03-08 07:05 | PDOC.FM ---
- Subjective Subjective: pt resting comfortably upon entry to room. awakened. Denies abd pain. states she did well last night. no N/V episodes wants to drink and try diet today Denies DENNEY. NST reactive at shift change last night. no overnight events. - Objective MAR Reviewed: Yes Vital Signs & Weight: Vital Signs (12 hours) Temp Pulse Resp BP Pulse Ox 03/08/20 04:00 97.5 F L 66 16 110/58 L 03/08/20 00:00 98.4 F 64 16 117/56 L 03/07/20 19:30 98.8 F 76 12 108/55 L 97 Weight Weight 170.551 kg I&O: 03/06/20 03/07/20 03/08/20 06:59 06:59 06:59 Output Total 500 Balance -500 Result Diagrams: 03/07/20 05:44 03/07/20 05:44 EKG Reviewed by me: Yes (wnl) Phys Exam - Physical Examination Constitutional: NAD HEENT: moist MMs, sclera anicteric Neck: supple, full ROM Respiratory: no wheezing, no rales, no rhonchi, clear to auscultation bilateral Cardiovascular: RRR, no significant murmur Gastrointestinal: soft, non-tender, no distention, positive bowel sounds obses Musculoskeletal: no edema, pulses present Neurological: non-focal, normal sensation, moves all 4 limbs Psychiatric: A&O x 3 Skin: no rash, normal turgor, cap refill <2 seconds Dx/Plan (1) Gestational diabetes mellitus Code(s): O24.419 - GESTATIONAL DIABETES MELLITUS IN , UNSP CONTROL Status: Acute (2) Headache Code(s): R51.9 - HEADACHE, UNSPECIFIED Status: Acute (3) and insulin-dependent diabetes mellitus Code(s): LFJ8496 - Status: Acute - Plan Plan: sIUP @ 34.4 weeks - NOA 04/15/20 per US [facility] - , hx in resulting in term male requiring NICU stay for respiratory problems, hypoglycemia, edema, jaundice per patient - GBS pos on screen collected 03/04/20 - QShift NST Hx pre-eclampsia Recent admission 02/18-02/22 at [facility] in [place], [place] where she was evaluated for headache, discharged with diagnosis of pre-eclampsia. Also reporti ng hx of pre-eclampsia in previous . - pr/cr ratio of 0.74, but 24 hour protein <10 (checked twice with lab) All other labs wnl. Unclear if this is chronic HTN with proteinuria vs pre-eclampsia w/severe features. - consulted manager chemical, appreciate recommendations. - continue to monitor BP, tx >160/100. BP wnl since admission. Epigastric abdominal pain Mildly elevated lipase with abdominal pain. Kept NPO due to smal lamount of bilious emesis. Hx pancreatitis in past and early in this per patient. Elevated triglycerides. No GB pathology on RUQ US. Lipase not 3 x upper limit normal, low suspicion for pancreatitis. - advance diet as tolerated today and monitor sx - started famotidine 20 mg BID - minimal improvement from GI cocktail. Mixed HLD Recommend dietary and lifestyle modifications Hepatic steatosis RUQ revealing hepatomegaly, hepatic steatosis. Suspect NAFLD. Hx syphilis Known hx syphilis in 2014 which was treated and most recent titer 1:1 per report. - repeat titer 1:2 this admission - will repeat in out pt setting and treat if >1:4 Headache-improved Now resolved after tx with tylenol, reglan, benadryl. Previously treated with fiorcet without relief. Symptoms concerning for migraine vs pre-eclampsia. - continue prn treatment with benadryl and reglan. Gestational DM A2 Per 1 hr and 3 hr GTT. Not on treatment on admission, insulin naive. Hga1c 7.7%. - increased lantus to 40 u SQ AM while NPO; humalog 20 u w/meals. hold humalog if npo. - accuchecks qAM and 2 hr post prandial - will need to be on 50 u lantus qAM upon discharge Late to care First presented for care in 12/2019. Reported ED US in 1T prior to this. Partial records sent despite multiple requests. Anatomy scan performed and limited due to patient body habitus. Spine, bladder, kidneys, stomach wnl. Heart and other structures not visualized. Miller cephalic fetus. - Neg: UDS, HIV, HbSAg, Hep C Ab, urine cx - f/u 1T labs : G/CT swab, HSV, Varicella, Rubella - GBS postive 03/04/20 Varicella non-immune Equivocal titer not meeting threshold for immunity. Will need post vaccination. Bacterial vaginitis Noted on VP3 - started metronidazole 500 mg BID x 7 days (03/04) Cervicitis Cervicitis visualized on speculum examination upon admission without tenderness during swab collection. - G/CT swab pending, VP3: + BV, isaac trichomonas and william Morbid Obesity BMI 57. Maternal weight gain this unknown. Depression Hx of suicidal ideations as recently as few weeks ago when she remained homeless. No further SI since moving with family in [place]. No past attempts, no plan or intent. - continue sertraline - continue to monitor for changes in mood, development of SI Hypothyroid - TSH wnl - continue levothyroxine Homelessness Previously homeless in [place]. from since 06/2019. Currently living with stepmother in [place] who cares for her first child. Denies trauma, drug use. Feels safe in current living situation. Plans to have cousin adopt baby. - CM consulted Dispo: planning transition to diet as tolerated. possible discharge home and Wednesday f/u in clinic for glucose check and pre-yannick care. Addendum - Attending - Attending Attestation Date/Time: 03/08/20 4066 I personally evaluated the patient and discussed the management with resident team I agree with the History, Examination, Assessment and Plan documented above with any addition or exceptions noted below. Migraine resolved. Will send home headache regiment for abortive treatment. Discussed OTC ppx with mag, B3, coq10 Unsure if true preE. All symptoms and signs completely resolved. Likley due to uncontrolled and untreated chronic conditions Morbid obesity with BMI 57 -- multiple risk factors including still DM likely pregestational. At goal with current regiment. Pancreatitis resolved. Tolerated meals. Follow up weekly with [facility] Needs testing. Darvin
[2020-03-08] MEDS: Ferrous Gluconate 324 MG TAB PO SCH (07:45)
[2020-03-08] MEDS: Famotidine 20 MG TAB PO SCH (07:46)
[2020-03-08] MEDS: metroNIDAZOLE 500 MG TAB PO SCH (07:46)
[2020-03-08 08:11] VITALS: BP 119/57; TEMP 98.1
[2020-03-08] MEDS: Levothyroxine Sodium 50 MCG TAB PO SCH (08:48)
[2020-03-08] MEDS: Insulin Glargine 40 UNITS in Pre-Filled Syringe 1 EACH SC SCH (08:48)
[2020-03-08] MEDS: HumaLOG 300 UNITS/3 ML VIAL SC SCH ×2 (08:52→11:55)
--- NOTE | 2020-03-08 11:11 | PDOC.BPN ---
<Grecia Kan - Last Filed: 03/08/20 11:08> - Brief Progress Note Pt has had all nml BP on this hx admission urine pro/cr ration elevated on admission and then <10 protrin in 24 hour urine protein collection in hospital. This proteinuria is likely caused by elevated blood glucose from GDM uncontrolled and was alleviated once hyperglycemia was controlled with initiation of insulin. The timing is consistent with the change observed as well. Treat DENNEY with reglan, benadryl and tylenol outpt. f/u in clinic on Wednesday. referral to [facility] At this time as well as weekly testing indicated. return precautions given. <Herminia Echeverria - Last Filed: 03/08/20 14:56> - Brief Progress Note Unsure if patient has true preeclampsia and not just uncontrolled chronic conditions. No evidence of hypertension and resolution of proteinuria along with transamnitis. Picture/diagnosis/etiology confusing due to late care and multiple transfers of care. Will continue to monitor closely. Darvin
--- NOTE | 2020-03-09 01:18 | DIS ---
DATE OF ADMISSION: 03/05/2020 DATE OF DISCHARGE: 03/08/2020 ADMITTING ATTENDING: Dr. Yi. CONSULTS: 1. GAUGE AND INSTRUMENT INSPECTOR. 2. Hospitalist, Davis Gant MD. 3. Case Management. PROCEDURES: Biophysical profile on 03/06, which showed an 8/8 biophysical profile. ultrasound on 03/04, which showed an estimated weight of 2310 grams. An alive intrauterine third trimester approximately dated 33.5 weeks. Vertex lie. Limited study with poor visualization of anatomy due to maternal body habitus. Abdominal right upper quadrant ultrasound on 03/06, which shows hepatomegaly with liver measuring 26.9 cm in craniocaudad dimensions and evidence of hepatic steatosis. No gallbladder calculi are seen, and the common duct is normal in caliber. DIAGNOSES: 1. Paredes intrauterine at 34.4 weeks. 2. History of preeclampsia. 3. Epigastric abdominal pain, likely pancreatitis, resolved. 4. Mixed hyperlipidemia. 5. Hepatic steatosis. 6. History of syphilis. 7. History of proteinuria, likely due to uncontrolled gestational diabetes. 8. Migraine headache. 9. Gestational diabetes mellitus A2. 10. Late to care. 11. Bacterial vaginosis. 12. Varicella nonimmune status. 13. Cervicitis. 14. Morbid obesity with BMI of 57. 15. Major depressive disorder. 16. Hypothyroidism. 17. Homelessness. DISCHARGE MEDICATIONS: 1. Benadryl 50 mg p.o. b.i.d. p.r.n. for headache. 2. Reglan 10 mg p.o. b.i.d. p.r.n. for headache. 3. Tylenol 650 mg p.o. t.i.d. p.r.n. for her headache. 4. Famotidine 20 mg p.o. daily. 5. Insulin Lantus 50 units subcu in the a.m. 6. Humalog 20 units subcu with meals. 7. Metronidazole 500 mg p.o. b.i.d. for 6 more days for bacterial vaginosis. 8. vitamin 1 tablet daily. 9. Sertraline 100 mg p.o. daily. 10. Levothyroxine 50 mcg p.o. daily. 11. Ferrous gluconate 324 mg p.o. daily. Discontinued medications: firocet. HISTORY OF PRESENT ILLNESS/HOSPITAL COURSE: Ms Rodriguez is a 24-year-old, G2, P1-0-0-1 that was 34 weeks and one day upon admission with a paredes intrauterine . She was admitted directly from the clinic, sent over for a history of preeclampsia in this and prior pregnancies and was having a headache. The patient had an initial protein/creatinine urine ratio of 0.7 and had no elevated blood pressure reading while observed in Labor and Delivery. She was admitted, and a 24-hour urine protein and further labs were taken at this time. A 24-hour urine protein was less than 10. The patient had an A1c of 7.7%, and the patient was started on Lantus and Humalog insulin to control her blood sugars. This timing is consistent with the change in the proteinuria. When her blood sugars were controlled, her proteinuria subsided. It is actually possible that her headache is more of a migraine presentation, and the proteinuria is unrelated to preeclampsia. She is likely to have either preeclampsia versus solitary proteinuria from the diabetes strain on the kidney or chronic hypertension with longstanding protein urea. We got the blood sugars well managed. Then, the patient developed episode of bilious emesis and epigastric abdominal pain. The patient was diagnosed with pancreatitis with a lipase of 101 and was placed n.p.o., IV fluids, and morphine for pain control for about one day. Her pain subsided and was gone on 03/08, and she has tolerated a slight diet. The patient's headache is resolved, blood sugars are well managed with fasting less than 95 and 2 hour postprandial less than 20 as our goal. Extensive education to patient about gestational diabetes, insulin administration, as well as Accu-Cheks was provided. She was given all prescriptions needed for glucometer and insulin and instructed to follow up in the clinic on Wednesday to proceed with her care. The patient was given Reglan, Benadryl, and Tylenol to be taken p.o. for her headaches, as this worked well in the inpatient setting to treat her migraine headaches. DISPOSITION: Stable and improved upon discharge. DISCHARGE INSTRUCTIONS: LOCATION: To home. DIET: As tolerated and consistent carb when taking full diet for diabetic diet. ACTIVITY: As tolerated and follow up with [facility] on Wednesday to resume care. The patient will also need an [facility] referral as well as weekly testing from this point forward. Job ID: [id number] [facility]
[2020-03-10 21:16] LABS: GC by PCR Inconclusive (NotDetected)
[2020-03-10 21:17] LABS: Chlamydia by PCR Inconclusive (NotDetected)
== END 2020-03-08 14:56 | disposition home or self-care (01) | DRG 831 ==
LOC: L&D/OP 11:44 → L&D 03-05 18:46 → 3SE 03-06 12:58
PROVIDERS: ADMIT Family Medicine; ATTEND Family Medicine
DX: O99.613 Diseases of the digestive system complicating pregnancy, third trimester (principal); K85.90 Acute pancreatitis without necrosis or infection, unspecified; O98.113 Syphilis complicating pregnancy, third trimester; A52.76 Other genitourinary symptomatic late syphilis; Z3A.33 33 weeks gestation of pregnancy; O23.593 Infection of other part of genital tract in pregnancy, third trimester; O99.283 Endocrine, nutritional and metabolic diseases complicating pregnancy, third trimester; E78.2 Mixed hyperlipidemia; K76.0 Fatty (change of) liver, not elsewhere classified; G43.909 Migraine, unspecified, not intractable, without status migrainosus; O99.353 Diseases of the nervous system complicating pregnancy, third trimester; O99.213 Obesity complicating pregnancy, third trimester; E66.01 Morbid (severe) obesity due to excess calories; E03.9 Hypothyroidism, unspecified; F32.9 Major depressive disorder, single episode, unspecified; O99.343 Other mental disorders complicating pregnancy, third trimester; Z20.828 Contact with and (suspected) exposure to other viral communicable diseases; E78.1 Pure hyperglyceridemia; O24.414 Gestational diabetes mellitus in pregnancy, insulin controlled; O36.8330 Maternal care for abnormalities of the fetal heart rate or rhythm, third trimester, not applicable or unspecified; Z59.0 Homelessness; Z79.899 Other long term (current) drug therapy; Z79.890 Hormone replacement therapy
CPT/HCPCS: 36415; 36416; 76705; 76805; 76819; 80053; 80061; 80306; 82570; 83036; 83690; 84156; 84443; 85025; 86593; 86762; 86780; 86787; 86803; 86850; 86900; 86901; 87077; 87081; 87086; 87340; 87389; 87480; 87491; 87510; 87529; 87591; 87635; 87660; J1200; J1815; J2270; J2405; J2765; J3475; J3490; U0003

== ENCOUNTER 2020-03-12 13:38 | Day surgery (SDC) | payer OTHER ==
[2020-03-12] MEDS ORDERED: hydrALAZINE 20 MG/ML VIAL SLOW IVP PRN (14:18)
[2020-03-12 14:30] VITALS: BP 129/58; TEMP 98.2
[2020-03-12 14:53] VITALS: BMI 57.7
--- NOTE | 2020-03-12 16:46 | PDOC.FPRHP ---
- History of Present Illness Chief Complaint: tachycardia History of Present Illness: 24 y/o at 35.1 weeks by wk sono sent from [facility] for tachycardia and maternal tachycardia. She was recently admitted to our facility from 03/04 - 03/07 to rule out pre-eclampsia and address several complications of her current . She was diagnosed with migraines, and proteinuria that resolved with adequate treatment of diabetes. She was discharged to home with her family with new prescriptions for insulin to manage A2GDM vs T2DM, reports she was unable to fill these scripts due to an issue with her insurance. She was able to get glucometer and strips, has been checking blood sugar fasting qAM and 2 hr post prandial. Per patient all readings are 130-150. Endorses good movement. Denies LOF, bleeding, vaginal discharge. Endorses few sporadic contractions yesterday that have since resolved. - Allergies/Adverse Reactions Allergies Allergy/AdvReac Type Severity Reaction Status Date / Time No Known Allergies Allergy Verified 03/12/20 14:25 - Home Medications Medication Instructions Recorded Confirmed Type Ferrous Gluconate 324 mg PO DAILY 03/04/20 03/12/20 History Levothyroxine Sodium 50 mcg PO DAILY 03/04/20 03/12/20 History Ondansetron [Ondansetron ODT] 4 mg PO Q4HR PRN 03/04/20 03/12/20 History Sertraline HCl 100 mg PO DAILY 03/04/20 03/12/20 History Blood-Glucose Meter [One Touch 1 each MC ASDIR 90 Days #1 kit 03/06/20 03/12/20 Rx Verio IQ Glucose Meter] metroNIDAZOLE [Flagyl] 500 mg PO BID #10 tab 03/06/20 03/12/20 Rx HumaLOG [HumaLOG Vial] 20 units SC AC #20 vial 03/07/20 03/12/20 Rx Insulin Glargine [Lantus Vial] 50 units SC QAM #15 vial 03/07/20 03/12/20 Rx Famotidine [Pepcid] 20 mg PO DAILY #30 tab 03/08/20 03/12/20 Rx Metoclopramide HCl [Reglan] 10 mg PO BID PRN #60 tab 03/08/20 03/12/20 Rx Vit,Calc76/Iron/Folic 1 each PO DAILY #30 tablet 03/08/20 03/12/20 Rx [Prenatabs Rx Tablet] - History PMHx: PSHx: FHx: Social: - Vital signs BP: [] HR: [] RR: [] Tmax: [] Pox: []% on [] Wt: [] FMR H&P: Upper Level - Plan Date/Time: 03/12/20 1646 I, [], have evaluated this patient and agree with findings/plan as outlined by development intern resident. Pertinent changes/additions are listed here.
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
[2020-03-12] MEDS ORDERED: HumaLOG 300 UNITS/3 ML VIAL SC SCH (17:15)
--- NOTE | 2020-03-12 17:21 | ULT ---
ULTRASOUND BIOPHYSICAL PROFILE: DATE: 03/12/2020 HISTORY: 24-year-old female third trimester FINDINGS: breathin tone: 2 movement: 2 Amniotic fluid volume: 2 lie: Cephalic heart rate: 153 bpm. BRENDA: 12.5 cm. Maternal cervix: 3.4 cm and closed. Placenta: Posterior. No placenta previa. IMPRESSION: Normal biophysical profile score of 8 out of 8, excluding the nonstress test.
[2020-03-12 17:29] LABS: ALT (SGPT) 18 U/L (8-55); AST (SGOT) 26 U/L (5-34); Albumin 3.3 g/dL (3.5-5.0); Alkaline Phosphatase 168 U/L (40-110); Anion Gap 15 mmol/L (10-20); BUN (Urea Nitrogen) 11 mg/dL (7.0-18.7); Bilirubin, Total 0.3 mg/dL (0.2-1.2); Calc. Creatinine Clearance 378 mL/min (70-130); Calcium 8.8 mg/dL (7.8-10.44); Carbon Dioxide 18 mmol/L (22-29); Chloride 102 mmol/L (98-107); Estimated GFR-MDRD Greater than 90; Globulin 4.2 g/dL (2.4-3.5); Glucose 161 mg/dL (70-105); Potassium 4.1 mmol/L (3.5-5.1); Protein, Total 7.5 g/dL (6.0-8.3); Sodium 131 mmol/L (136-145)
[2020-03-13] MEDS ORDERED: FLU VACC QS2020-21(6MOS UP)/PF 60 MCG/0.5 ML SYRINGE IM ONE (15:15)
== END 2020-03-12 18:05 | disposition home or self-care (01) ==
LOC: L&D/OP 13:38
PROVIDERS: ATTEND Family Medicine
DX: O99.891 Other specified diseases and conditions complicating pregnancy (principal); R00.0 Tachycardia, unspecified; G43.909 Migraine, unspecified, not intractable, without status migrainosus; O10.913 Unspecified pre-existing hypertension complicating pregnancy, third trimester; O24.419 Gestational diabetes mellitus in pregnancy, unspecified control; O99.213 Obesity complicating pregnancy, third trimester; E66.01 Morbid (severe) obesity due to excess calories; O99.343 Other mental disorders complicating pregnancy, third trimester; F32.9 Major depressive disorder, single episode, unspecified; O99.283 Endocrine, nutritional and metabolic diseases complicating pregnancy, third trimester; E03.9 Hypothyroidism, unspecified; O98.513 Other viral diseases complicating pregnancy, third trimester; O09.33 Supervision of pregnancy with insufficient antenatal care, third trimester; Z3A.35 35 weeks gestation of pregnancy; Z79.4 Long term (current) use of insulin; Z79.899 Other long term (current) drug therapy; Z59.0 Homelessness
CPT/HCPCS: 36415; 36416; 76819; 82010; 99282

== ENCOUNTER 2020-03-25 17:15 | Inpatient (IN) | payer OTHER ==
[~2020-03-25 17:15] MED LIST: Bupivacaine 0.25% HCL 30 ML VIAL ONE; Bupivacaine/Epinephrine 0.25% 30 ML VIAL ONE
[2020-03-25] MEDS ORDERED: Ondansetron PF 4 MG/2 ML Vial IVP PRN (18:13)
[2020-03-25] MEDS ORDERED: Promethazine HCl 25 MG/ML VIAL IM PRN (18:13)
[2020-03-25] MEDS ORDERED: Lidocaine 1% (PF) 30 ML VIAL SC PRN (18:13)
[2020-03-25] MEDS ORDERED: hydrALAZINE 20 MG/ML VIAL SLOW IVP PRN (18:13)
[2020-03-25] MEDS ORDERED: NS / Oxytocin 40 units/1000ml 1,000 ML IV PRN (18:13)
[2020-03-25] MEDS ORDERED: NS w/ Oxytocin 10 units 500 ML IV SCH ×2 (18:15)
[2020-03-25] MEDS ORDERED: Dextrose 5%-Lactated Ringers 1,000 ML IV PRN (18:24)
[2020-03-25] MEDS ORDERED: Dextrose 50% Abboject 50 ML SYRINGE SLOW IVP PRN (18:25)
[2020-03-25] MEDS ORDERED: Dextrose 5% in Water 1,000 ML IV PRN (18:25)
[2020-03-25 18:28] VITALS: BMI 56.2
[2020-03-25] MEDS ORDERED: Penicillin G Potassium 5 MILL.UNITS in Sodium Chloride 0.9% 100 ML IVPB SCH (18:30)
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
[2020-03-25 20:08] LABS: Hemoglobin 10.6 g/dL (12.0-16.0); Mean Corpuscular HGB CONC 33.1 g/dL (32.0-36.0); Mean Corpuscular Hemoglobin 27.6 pg (27.0-31.0); Mean Corpuscular Volume 83.3 fL (78.0-98.0); Mean Platelet Volume 11.2 fL (7.4-10.4); Platelet Count 235 thou/uL (130-400); RBC Distribution Width 14.8 % (11.5-14.5); Red Blood Cell (RBC) Count 3.84 mill/uL (4.20-5.40); White Blood Cell (WBC) Count 9.8 thou/uL (4.8-10.8)
[2020-03-25] MEDS: Lactated Ringer's 1,000 ML IV SCH ×2 (20:22→21:50)
[2020-03-25] MEDS: Misoprostol 100 MCG TAB VAG SCH (20:22)
[2020-03-25 20:29] LABS: ALT (SGPT) 17 U/L (8-55); AST (SGOT) 18 U/L (5-34); Albumin 3.1 g/dL (3.5-5.0); Alkaline Phosphatase 185 U/L (40-110); Anion Gap 16 mmol/L (10-20); BUN (Urea Nitrogen) 10 mg/dL (7.0-18.7); Bilirubin, Total 0.2 mg/dL (0.2-1.2); Calc. Creatinine Clearance 322 mL/min (70-130); Carbon Dioxide 18 mmol/L (22-29); Chloride 102 mmol/L (98-107); Estimated GFR-MDRD Greater than 90; Globulin 3.8 g/dL (2.4-3.5); Glucose 211 mg/dL (70-105); Potassium 3.8 mmol/L (3.5-5.1); Protein, Total 6.9 g/dL (6.0-8.3); Sodium 132 mmol/L (136-145)
[2020-03-25] MEDS ORDERED: HumaLOG 300 UNITS/3 ML VIAL SC PRN (20:51)
[2020-03-25] MEDS ORDERED: Insulin Glargine 30 UNITS in Pre-Filled Syringe SC SCH (21:00)
[2020-03-25] MEDS ORDERED: Insulin Glargine 15 UNITS in Pre-Filled Syringe 1 EACH SC SCH (21:00)
[2020-03-25 21:13] LABS: Syphilis Antibody Index 15.31 S/CO (<1.00 Non-Reactive)
[2020-03-25 21:24] LABS: Amphetamine Not Detected (NotDetected); Barbiturates Screen Not Detected (NotDetected); Benzodiazepine Screen Not Detected (NotDetected); Cocaine Metabolite Screen Not Detected (NotDetected); Medtox Control Line Valid? VALID (VALID); Medtox Reader # READER 4; Methadone Not Detected (NotDetected); Methamphetamine Not Detected (NotDetected); Opiate Screen Not Detected (NotDetected); Oxycodone Screen Not Detected (NotDetected); Phencyclidine (PCP) Not Detected (NotDetected); THC/Cannabinoid Screen Not Detected (NotDetected); Tricyclic Screen Not Detected (NotDetected)
[2020-03-25] MEDS: HumaLOG 300 UNITS/3 ML VIAL SC PRN ×2 (21:46→23:04)
[2020-03-25 21:53] LABS: Creatinine, Urine 127.24 mg/dL (47-110)
[2020-03-25 21:54] LABS: Syphilis Antibody INDETERMINATE (Nonreactive)
[2020-03-25 23:53] LABS: HBSAg Index 0.19 S/CO (0-0.99); Hep B Surf Ag Non-Reactive S/CO (NonReactive)
--- NOTE | 2020-03-26 00:19 | PDOC.LDPN ---
Labor & Delivery Progress Note - Subjective Subjective: comfortable - Objective Vital signs reviewed and normal: yes General: NAD Uterine fundus: non tender SVE: /-2 FHT: category 1 Plan: continue plan of care -: Pt is a 24 y/o @ 37 wga who presents for mIOL for uncontrolled GDMA2. ##sIUP, high risk -FHTs: FHR 150s, with moderate variability, no ctx seen at this time -2019 SVE: /-2, cytotec placed at this time -14 SVE /-2, second cytotec placed at this time, Jenkins score a 5 at this time. POC glucose 113. BP 134/60 HR 69. -GBS positive, will start ppx -Desires Epidural ##GDMA2, uncontrolled Pt has been followed by MFM at [facility]. Most recent visit was 03/21 upon which they had changed patient's insulin regimen to levemir 30U BID and humalog 20U with meals. Pt had been determined to not be eligible for induction at that time due to "adequate control of diabetes" however it was recommended that she could be induced between 36-38 wga if GDM was uncontrolled. According to patient since her visit at [facility], she was without her insulin since her discharge from [facility] on the and states that her last dose of insulin was -Glucose checks Q4 during latent labor, Q1 during active -Levemir 15U to be given tonight with SSI to be on hand -Pt's A1C was 7.7 -POC glucose checks, Q1H with SSI until glucose < 120 then can space out to Q4 in latent labor -current POC was 186 -EFW was 2855g with Hadlock of 69% with BRENDA 11 on 03/20 ##Preeclampsia Pt has hx of elevated BPs. diagnosed with [facility]ecl[facility] at [facility]. Pt states that she has been checking her BPs at home with a monitor and the highest SBP she has see was 150. 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 Per MFM note was urine protein/creatinine ratio 0.25 on 03/21. -VSS as of now, will continue to monitor vitals and BPs -CMP ordered as well as urine protein/creatinine ##Varicella, non immune -will need vaccine during post- stay ##Hypothyroidism -continue pt medication -most current TSH was 1.9816 ##Hx of indeterminate Gonorrhea/Chlamydia -will order for swab testing ##NAFLD -aware -most recent LFTs showed AST/ALT , Alk Phos 185 -triglycerides 249 -cholesterol total 282 ##Iron deficiency anemia -was taking iron supplementation -H/H recent ##Hx of syphillis s/p txt in 2012 -aware -based on prior labs syphillis Ab indeterminate, RPR titer 1:2, T. pallidum particle Agg, reactive ##Hx of drug use -past UDS showed positive for barbituates -UDS ordered, pending ##MDD -aware on zoloft ##Late to Care ##Hx of non-compliance -aware ##Complex Living situation -patient does not have permanent home -pt will be giving child up for adoption for family in [place] -CM consult placed PCP: SATHYA Barrios Plan: continue with current management. monitoring glucose closely. will recheck in 4 hours. Addendum - Attending - Attending Attestation Date/Time: 03/26/20 5059 I personally evaluated the patient and discussed the management with Dr. Flores. I agree with the History, Examination, Assessment and Plan documented above with any addition or exceptions noted below. Discussion about preeclampsia noted. She appears to be serofast p tx of syphilis with no increase in titer. Continue ripening.
[2020-03-26] MEDS: Misoprostol 100 MCG TAB VAG SCH ×3 (00:24→19:22)
[2020-03-26] MEDS: Penicillin G 2.5 MILL.units 2.5 MILL.UNITS in Premix Bag 1 BAG IVPB SCH ×6 (00:42→19:22)
[2020-03-26] MEDS ORDERED: Butorphanol Tartrate 1 MG/ML VIAL SLOW IVP PRN (04:47)
--- NOTE | 2020-03-26 05:43 | PDOC.LDPN ---
Labor & Delivery Progress Note - Subjective Subjective: comfortable - Objective Vital signs reviewed and normal: yes Abnormal vital signs: most recent BP 112/59, with HR 79 General: NAD Uterine fundus: non tender SVE: /3 FHT: category 1 [place] contractions every: none seen at this time Plan: pitocin for augmentation -: Pt is a 24 y/o @ 37.1 wga who presents for mIOL for uncontrolled GDMA2. ##sIUP, high risk -FHTs: FHR 150s, with moderate variability, no ctx seen at this time -2019 SVE: /-2, cytotec placed at this time -14 SVE /-2, second cytotec placed at this time, Jenkins score a 5 at this time. POC glucose 113. BP 134/60 HR 69. -0400 SVE 3, pitocin ordered to start, cat 1 strip at this time with FHR in 150s, BP 112/59 HR 79 most recently -GBS positive, will start ppx -Desires Epidural ##GDMA2, uncontrolled Pt has been followed by MFM at [facility]. Most recent visit was 03/21 upon which they had changed patient's insulin regimen to levemir 30U BID and humalog 20U with meals. Pt had been determined to not be eligible for induction at that time due to "adequate control of diabetes" however it was recommended that she could be induced between 36-38 wga if GDM was uncontrolled. According to patient since her visit at [facility], she was without her insulin since her discharge from [facility] on the and states that her last dose of insulin was -Glucose checks Q4 during latent labor, Q1 during active -Levemir 15U to be given tonight with SSI to be on hand -Pt's A1C was 7.7 -POC glucose checks, Q1H with SSI until glucose < 120 then can space out to Q4 in latent labor -current POC was 186 -EFW was 2855g with Hadlock of 69% with BRENDA 11 on 03/20 ##Preeclampsia Pt has hx of elevated BPs. diagnosed with preeclampsia at [facility]. Pt states that she has been checking her BPs at home with a monitor and the highest SBP she has see was 150. Had previous admission at [facility] which had showed elevated protein/events specialist ratio, however recent labs at our facility here showed urine protein less that 10 and creatinine 31.62 on 03/06/20. Per MFM note was urine protein/creatinine ratio 0.25 on 03/21. -VSS as of now, will continue to monitor vitals and BPs -CMP ordered as well as urine protein/creatinine ##Varicella, non immune -will need vaccine during post- stay ##Hypothyroidism -continue pt medication -most current TSH was 1.9816 ##Hx of indeterminate Gonorrhea/Chlamydia -will order for swab testing ##NAFLD -aware -most recent LFTs showed AST/ALT , Alk Phos 185 -triglycerides 249 -cholesterol total 282 ##Iron deficiency anemia -was taking iron supplementation -H/H recent ##Hx of syphillis s/p txt in 2012 -aware -pt has been adequately treated ##Hx of drug use -past UDS showed positive for barbituates -UDS ordered, pending ##MDD -aware on zoloft ##Late to Care ##Hx of non-compliance -aware ##Complex Living situation -patient does not have permanent home -pt will be giving child up for adoption for family in [place] -CM consult placed PCP: SATHYA Barrios Plan: continue with current management. monitoring glucose closely. will recheck in 4 hours.
[2020-03-26] MEDS ORDERED: Fentanyl 4 mcg/Bup 0.1% Cadd 100 ML in Premix Bag 1 BAG EPIDURAL SCH (06:30)
[2020-03-26] MEDS: Lactated Ringer's 1,000 ML IV SCH ×2 (06:53→14:10)
[2020-03-26] MEDS ORDERED: Naloxone HCl 0.4 mg/ml Vial IVP PRN ×2 (07:20)
[2020-03-26] MEDS ORDERED: diphenhydrAMINE 50 MG/ML VIAL IVP PRN (07:20)
[2020-03-26] MEDS ORDERED: Acetaminophen 325 MG TAB PO PRN (07:20)
[2020-03-26] MEDS ORDERED: Lactated Ringer's 500 ML IV PRN (07:20)
[2020-03-26] MEDS ORDERED: ePHEDrine 50 MG/ML VIAL SLOW IVP PRN (07:20)
[2020-03-26] MEDS ORDERED: Promethazine HCl 25 MG/ML VIAL IM PRN (07:20)
[2020-03-26] MEDS ORDERED: Ondansetron PF 4 MG/2 ML Vial IVP PRN (07:20)
[2020-03-26] MEDS ORDERED: Fentanyl 4 mcg/Bupivacaine 0.1% Cassette 100 ML EPIDURAL SCH (07:30)
[2020-03-26] MEDS ORDERED: Communication Order-Pharmacy FS SCH (07:30)
[2020-03-26] MEDS: Levothyroxine Sodium 50 MCG TAB PO SCH (08:03)
[2020-03-26] MEDS: HumaLOG 300 UNITS/3 ML VIAL SC PRN ×3 (08:14→10:40)
--- NOTE | 2020-03-26 08:22 | PDOC.LDPN ---
Labor & Delivery Progress Note - Subjective Subjective: comfortable, other (Denies DENNEY, vision changes, chest pain, SOB, u pper abdominal pain, edema) - Objective Vital signs reviewed and normal: yes General: NAD FHT: category 1 (+ accels, no decels, moderate variability, FHT 120 baseline) Plan: continue plan of care -: Pt is a 24 y/o @ 37.1 wga who presents for mIOL for uncontrolled GDMA2. ##sIUP, high risk -FHTs: FHR 150s, with moderate variability, no ctx seen at this time -GBS positive, will start ppx now 2019 SVE: 2/50/-2, cytotec #1 0015 SVE 250/-2, cytotec #2 0400 SVE 50/-3 0600 SVE 5/50/-1, SROM, internals placed 0700 Epidural placed ##GDMA2, uncontrolled Pt has been followed by MFM at [facility]. Most recent visit was 03/21 upon which they had changed patient's insulin regimen to levemir 30U BID and humalog 20U with meals. Pt had been determined to not be eligible for induction at that time due to "adequate control of diabetes" however it was recommended that she could be induced between 36-38 wga if GDM was uncontrolled. According to patient since her visit at [facility], she was without her insulin since her discharge from [facility] on the and states that her last dose of insulin was -Glucose checks Q4 during latent labor while maintaining glucose < 120, Q1 if > goal during latent and during active -Levemir 15U BID -EFW was 2855g with Hadlock of 69% with BRENDA 11 on 03/20 ##Preeclampsia Pt has hx of elevated BPs. diagnosed with preeclampsia at [facility]. Pt states that she has been checking her BPs at home with a monitor and the highest SBP she has see was 150. 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 Per MFM note was urine protein/creatinine ratio 0.25 on 03/21. -VSS. Continue to monitor BP -Protein/creatinine ratio: 0.37 ##Varicella, non immune -will need vaccine during post- stay ##Hypothyroidism -continue pt medication -most current TSH was 1.9816 ##Hx of indeterminate Gonorrhea/Chlamydia -Swab completed ##NAFLD -aware -most recent LFTs showed AST/ALT , Alk Phos 185 -triglycerides 249 -cholesterol total 282 ##Iron deficiency anemia -was taking iron supplementation -H/H recent ##Hx of syphillis s/p txt in 2012 -aware ##Hx of drug use -past UDS showed positive for barbituates -UDS ordered, pending ##MDD -aware on zoloft ##Late to Care ##Hx of non-compliance -aware ##Complex Living situation -patient does not have permanent home -pt will be giving child up for adoption for family in [place] -CM consult placed PCP: SATHYA Barrios Plan: Glucose checks Q1H, recheck at 1000
[2020-03-26] MEDS ORDERED: Insulin Glargine 15 UNITS in Pre-Filled Syringe 1 EACH SC SCH (09:00)
--- NOTE | 2020-03-26 10:35 | PDOC.LDPN ---
Labor & Delivery Progress Note - Subjective Subjective: comfortable - Objective Vital signs reviewed and normal: yes General: NAD Uterine fundus: non tender Dilation: 5 Effacement: 50% Station: -2 FHT: category 2 (1 late decel present, + accels, moderate ) [place] contractions every: 5min Plan: continue plan of care, pitocin for augmentation -: Pt is a 24 y/o @ 37.1 wga who presents for mIOL for uncontrolled GDMA2. ##sIUP, high risk -FHTs: FHR 150s, with moderate variability, no ctx seen at this time -GBS positive, will start ppx now 2019 SVE 2/50/-2, cytotec #1 0015 SVE 2/50/-2, cytotec #2 0400 SVE 3/50/-3 0600 SVE 5/50/-1, SROM, internals placed 0700 Epidural placed 1000 SVE 5/50/-2 1045 pit started ##GDMA2, uncontrolled Pt has been followed by MFM at [facility]. Most recent visit was 03/21 upon which they had changed patient's insulin regimen to levemir 30U BID and humalog 20U with meals. Pt had been determined to not be eligible for induction at that time due to "adequate control of diabetes" however it was recommended that she could be induced between 36-38 wga if GDM was uncontrolled. According to patient since her visit at [facility], she was without her insulin since her discharge from [facility] on the and states that her last dose of insulin was -Glucose checks Q4 during latent labor while maintaining glucose < 120, Q1 if > goal during latent and during active -Levemir 15U BID -EFW was 2855g with Hadlock of 69% with BRENDA 11 on 03/20 ##Preeclampsia Pt has hx of elevated BPs. diagnosed with preeclampsia at [facility]. Pt states that she has been checking her BPs at home with a monitor and the highest SBP she has see was 150. 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 Per MFM note was urine protein/creatinine ratio 0.25 on 03/21. -VSS. Continue to monitor BP -Protein/creatinine ratio: 0.37 ##Varicella, non immune -will need vaccine during post- stay ##Hypothyroidism -continue pt medication -most current TSH was 1.9816 ##Hx of indeterminate Gonorrhea/Chlamydia -Swab completed ##NAFLD -aware -most recent LFTs showed AST/ALT 18/, Alk Phos 185 -triglycerides 249 -cholesterol total 282 ##Iron deficiency anemia -was taking iron supplementation -H/H recent . ##Hx of syphillis s/p txt in 2012 -aware ##Hx of drug use -past UDS showed positive for barbituates -UDS ordered, pending ##MDD -aware on zoloft ##Late to Care ##Hx of non-compliance -aware ##Complex Living situation -patient does not have permanent home -pt will be giving child up for adoption for family in [place] -CM consult placed PCP: SATHYA Barrios Plan: Glucose checks Q1H, recheck at 1300 Addendum - Attending - Attending Attestation Date/Time: 03/26/20 1105 I personally evaluated the patient and discussed the management with Dr. Haider. I agree with the History, Examination, Assessment and Plan documented above with any addition or exceptions noted below. Patient experience 2 non-consecutive late declerations approximately 1 hour ago and pitocin was not started. She has remained unchanged and needs labor augmentation. I explained to the patient and her friend/support person that at this time i feel we need to start pitocin to help deliver baby. However, I also discussed the risks associated with the possibility of NRFHT and the need for a urgent/emergent c/s and the r/b/a/i associated with that. The expressed understanding and were agreeable to this. I told them given her body habitus, i have a much lower threshold for proceeding for pLTCS for NRFHT as it will be a much more complicated operation. They expressed understanding and were agreeable to this. continue labor augmentation at this time.
[2020-03-26] MEDS ORDERED: Butorphanol Tartrate 1 MG/ML VIAL ONE (13:06)
[2020-03-26] MEDS ORDERED: Methylergonovine 0.2 MG TAB ONE (13:07)
[2020-03-26] MEDS: Misoprostol 200 MCG TAB ONE ×3 (13:10→13:31)
[2020-03-26] MEDS ORDERED: diphenhydrAMINE 25 MG CAP PO PRN (13:27)
[2020-03-26] MEDS ORDERED: Bisacodyl 10 MG SUPP PR PRN (13:27)
[2020-03-26] MEDS ORDERED: hydrALAZINE 20 MG/ML VIAL SLOW IVP PRN (13:27)
[2020-03-26] MEDS ORDERED: Benzocaine-Menthol 82.5 ML CAN TOP PRN (13:27)
[2020-03-26] MEDS ORDERED: Milk Of Magnesia 30 ML UDCUP PO PRN (13:27)
[2020-03-26] MEDS ORDERED: NS / Oxytocin 40 units/1000ml 1,000 ML IV SCH (13:30)
--- NOTE | 2020-03-26 13:43 | PDOC.OPDEL ---
OB Operative/Delivery Note Delivery Dr/Surgeon: Angelo Dominguez Pre-Delivery Diagnosis: medically indicated induction Anesthesia: epidural - Additional Findings/Plan Placenta delivered: spontaneous Estimated blood loss: 111 Compilations/Other Findings: Vaginal Delivery Dictation Guideline Delivering Physician -Dr. Bear Attending- Dr. Stephens Procedure: Spontaneous Vaginal Delivery Anesthesia: Epidural QBL: 111ml Pre-op Diagnosis: 1. Term intrauterine in labor 2. A2GDM, uncontrolled 3. PreE 4. Complicated social situation 5. Morbid obesity 6. Anemia 7. Hx of syphilis 8. Varicella Non immune 9. Hx of drug use Post-op Diagnosis: 1. Term intrauterine , delivered 2-9. same as above Indications: A 24y/o female presents for medically indicated induction for uncontrolled A2GDM Delivery Note: This is 24y/o female @ 37.1 wks who delivered a viable M infant on 03/26 at 1256. Following a fairly quick dilation a male was delivered over an intact perineum in the occipitoanterior position. Anterior Shoulder and then remainder of the body delivered. No nuchal cord. The head was held down and mouth and nares were bulb suctioned. Cord clamped and cut quickly due to minimal responsiveness from baby and cord blood collected. Placenta delivered intact in the [place] with a 3 vessel cord noted. Fundal massage was performed and the fundus was firm. The cervix and vagina were inspected and found to be free of lacerations but a hemostatic cervical polyp was noted. went to nursery in good condition for routine care after initial resuscitation requiring blowby and CPAP. Apgars were 1/9 at 1 & 5 minutes, respectively. Patient tolerated delivery well and went to after routine recovery/care. Post delivery plan: routine recovery Addendum - Attending - Attending Attestation Date/Time: 03/26/20 1801 I personally evaluated the patient and discussed the management with Dr. Dominguez. I agree with the History, Examination, Assessment and Plan documented above with any addition or exceptions noted below. I was present for and supervise the entire delivery.
[2020-03-26] MEDS ORDERED: HumaLOG 300 UNITS/3 ML VIAL SC PRN ×2 (15:07)
[2020-03-26] MEDS: Ibuprofen 800 MG TAB PO SCH ×2 (16:20→21:33)
[2020-03-26] MEDS: Ferrous Sulfate 325 MG TAB PO SCH (16:21)
[2020-03-26] MEDS ORDERED: traMADol HCl 50 MG TAB PO SCH (17:15)
[2020-03-26] MEDS ORDERED: Sodium Chloride 0.9% 10 ML ONE (17:34)
[2020-03-26] MEDS: Docusate Calcium (SURFAK) 240 MG CAP PO SCH (21:33)
[2020-03-27] MEDS: Ibuprofen 800 MG TAB PO SCH ×3 (06:09→21:25)
[2020-03-27] MEDS: Levothyroxine Sodium 50 MCG TAB PO SCH (06:10)
--- NOTE | 2020-03-27 07:28 | PDOC.OBPPN ---
FMR OB PN: Subj - Interval History Hospital Day: 3 Day: 1 Chief Complaint: none Indentification: who is PP day #1 s/p @ 37.1 WGA. Interval History: Tolerating PO, ambulating, passing gas, pain controlled. FMR OB PN: Obj - Maternal Vital signs: BP: 130/73 HR: 70 RR: 18 Tmax: 98.5F Pox: 98% on RA Wt: 167 kg - Urine output I&O: 03/26/20 03/27/20 03/28/20 06:59 06:59 06:59 Intake Total 2112 Output Total 340 Balance 1772 - Lochia Lochia: WNLs - Pain Management Pain scale: 0 Intervention: oral medication FMR OB PN: Exam - Physical Exam General: NAD, awake, alert and oriented HEENT: normocephalic and atraumatic, grossly normal vision, grossly normal hearing Neck: supple, FROM Heart: RRR, normal S1/S2, no murmurs/rubs/gallops General: CTAB, no respiratory distress, good air movement, no wheezing, no retractions Abdomen: soft, fundus(cm) (firm just below umbilicus), non-tender, bowel sound present Musculoskeletal: normal gait and station, FROM in all four extremities Neurological: cranial nerves II through XII intact, sensation to pain,touch and proprioception grossly normal, no focal deficit Skin: no rash : appropriately tender Lymphatic: no unusual bruising or bleeding Psychiatric: intact recent and remote memory, good judgement and insight, normal mood and affect - Pelvic Exam : no discharge, no edema, normal lochia FMR OB PN: Data - Labs Lab results: Laboratory Results - last 24 hr 03/25/20 03/26/20 03/26/20 19:56 08:08 09:17 POC Glucose 142 H 155 H Syphilis IgG/IgM Ab INDETERMINATE A RPR Titer 1:1 A 03/26/20 03/26/20 03/26/20 10:20 11:15 12:14 POC Glucose 130 H 98 76 Syphilis IgG/IgM Ab RPR Titer 03/26/20 03/26/20 03/27/20 16:50 21:07 06:14 POC Glucose 96 145 H 106 H Syphilis IgG/IgM Ab RPR Titer FMR OB PN: A/P - Problem List (1) Hypothyroidism Current Visit: Yes Status: Acute Code(s): E03.9 - HYPOTHYROIDISM, UNSPECIFIED Qualifiers: Hypothyroidism type: unspecified Qualified Code(s): E03.9 - Hypothyroidism, unspecified (2) Morbid obesity Current Visit: Yes Status: Acute Code(s): E66.01 - MORBID (SEVERE) OBESITY DUE TO EXCESS CALORIES (3) Late care Current Visit: Yes Status: Acute Code(s): O09.30 - SUPRVSN OF PREG W INSUFFICIENT ANTENAT CARE, UNSP TRIMESTER (4) Maternal varicella, non-immune Current Visit: Yes Status: Acute Code(s): O09.899 - SUPERVISION OF OTHER HIGH RISK PREGNANCIES, UNSP TRIMESTER; Z28.3 - UNDERIMMUNIZATION STATUS (5) Gestational diabetes mellitus Current Visit: No Status: Acute Code(s): O24.419 - GESTATIONAL DIABETES MELLITUS IN , UNSP CONTROL Disposition: 24 y/o who is PP day #1 s/p @ 37.1 wga after presenting for a mIOL for uncontrolled GDMA2. ##PP day #1 s/p @ 37.1 WGA: Tolerating PO, ambulating, passing gas & voiding normally. No BM yet. Pain con trolled with PO meds. Lochia/bleeding WNLs. Continue routine PP care. ##GDMA2, uncontrolled with suspected pre-GDM -ACHS accuchecks ranging from 70s-140s since delivery. CC diet ordered. Will continue to monitor over course of today. -A1c 7.7 on 03/04/20. Will likely start metformin today & d/c on this rather than insulin therapy & reassess PP. ##Preeclampsia Pt has hx of elevated BPs. diagnosed with preeclampsia at [facility]. Pt stated that she has been checking her BPs at home with a monitor and the highest SBP she has seen was 150. Had previous admission at [facility] which had showed elevated protei n/lead handler ratio, however recent labs at our facility here showed urine protein less that 10 and creatinine 31.62 on 03/06/20. Per MFM note was urine protein/creatinine ratio 0.25 on 03/21. -No elevated BP since delivery noted. Continue to monitor BPs PP. -Protein/creatinine ratio 0.37 on admission -placenta path pending ##Varicella, non immune -will need vaccine during post- stay ##Hypothyroidism -continue home medication -most current TSH was 1.9816. Abs ordered this AM to assess for AI thyroiditis vs. acquired. ##Hx of indeterminate Gonorrhea/Chlamydia -Swab completed on admission. Results still pending. ##NAFLD -aware -most recent LFTs showed AST/ALT , Alk Phos 185 -triglycerides 249 -cholesterol total 282 -Will encourage weight loss ##Iron deficiency anemia -H/H on admission .. Will continue PNVs PP. ##Hx of syphillis s/p txt in 2013 -aware ##Morbid obesity - Will encourage weight loss & consider rig welder consult if she stays another day. ##Hx of drug use -past UDS showed positive for barbituates -UDS negative on admission ##MDD -aware on zoloft ##Late to Care with Hx of non-compliance -Aware, infant to be adopted by family living in [place], [place]. CM consulted. ##Complex Living situation -Patient does not have permanent home. CM on board. PCP: SATHYA Trinidad Plan: Continue routine PP care with anticipated d/c date later today vs. tomorrow AM pending CM recs. Discussion: Date/Time: 03/27/20726 This H&P was discussed with Dr. Stephens who agrees with the above documentation and plan. Addendum - Attending - Attending Attestation Date/Time: 03/27/20910 I personally evaluated the patient and discussed the management with Dr. Trinidad. I agree with the History, Examination, Assessment and Plan documented above with any addition or exceptions noted below. obs tonight 2/2 pre-e and DM2. restart DM medications blood glucose above goal. BP at goal. Likely d/c tomorrow. needs f/u on wednesday.
[2020-03-27] MEDS ORDERED: Varicella virus, LIVE 0.5 ML VIAL SC ONE (07:39)
[2020-03-27] MEDS ORDERED: Adacel (T-DAP) 0.5 ML SYRINGE IM ONE (09:00)
[2020-03-27] MEDS: Ferrous Sulfate 325 MG TAB PO SCH ×2 (09:25→16:35)
[2020-03-27] MEDS: Prenatal Vitamin 1 TAB PO SCH (09:26)
[2020-03-27] MEDS: Docusate Calcium (SURFAK) 240 MG CAP PO SCH ×2 (09:26→21:27)
[2020-03-27] MEDS ORDERED: metFORMIN 500 MG TAB PO SCH (09:45)
[2020-03-27] MEDS: metFORMIN 500 MG TAB PO SCH (18:27)
[2020-03-28] MEDS: Ibuprofen 800 MG TAB PO SCH (06:04)
[2020-03-28] MEDS: Levothyroxine Sodium 50 MCG TAB PO SCH (06:04)
--- NOTE | 2020-03-28 06:42 | PDOC.PP ---
Post Progress Note Post Day #: 2 Subjective: Patient reports mild vaginal pain well controlled with current pain regimen. Denies headache, vision changes, chest pain, SOB, nausea, abdominal pain and edema. PO intake tolerated: yes Flatus: yes Ambulation: yes Vital Signs (12 hours) Temp Pulse Resp BP Pulse Ox 03/27/20 20:15 97.8 F 76 18 131/80 98 Weight Weight 167.829 kg - Physical Examination General: NAD Cardiovascular: no m/r/g, RRR Respiratory: clear to auscultation bilaterally, non-labored breathing Abdominal: + bowel sounds, lochia, no distention, appropriately TTP Extremities: negative homans (B) Neurological: no gross focal deficits Psychiatric: A&Ox3 Result Diagrams: 03/25/20 19:56 03/25/20 19:56 Additional Labs: Post Labs Hep Bs Antigen Non-Reactive S/CO (NonReactive) 03/25/20 19:56 Blood Type B POSITIVE 03/25/20 19:56 - Assessment/Plan 24 y/o who is PP day #2 s/p @ 37.1 wga after presenting for a mIOL for uncontrolled GDMA2. ##PP day #2 s/p @ 37.1 WGA: -Tolerating PO, ambulating, passing gas & voiding normally. -Pain controlled with PO meds -Lochia/bleeding WNLs -Continue routine PP care ##GDMA2, uncontrolled with suspected pre-GDM -ACHS accuchecks ranging from 91-118 in the past 24 hours -CC diet ordered -Continue metfomin 500mg daily ##Preeclampsia Pt has hx of elevated BPs. diagnosed with preeclampsia at [facility]. Pt stated that she has been checking her BPs at home with a monitor and the highest SBP she has seen was 150. 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 Per MFM note was urine protein/creatinine ratio 0.25 on 03/21. -No elevated BP since delivery noted. Continue to monitor BPs PP. -Protein/creatinine ratio 0.37 on admission -placenta path pending ##Varicella, non immune -will need vaccine during post- stay ##Hypothyroidism -continue home medication -most current TSH was 1.9816. Abs ordered to assess for AI thyroiditis vs. acquired ##Hx of indeterminate Gonorrhea/Chlamydia -Swab completed on admission. Results still pending. ##NAFLD -aware -most recent LFTs showed AST/ALT , Alk Phos 185 -triglycerides 249 -cholesterol total 282 -Will encourage weight loss ##Iron deficiency anemia -H/H on admission 10.. Will continue PNVs PP. ##Hx of syphillis s/p txt in 2013 -aware ##Morbid obesity - Will encourage weight loss ##Hx of drug use -past UDS showed positive for barbituates -UDS negative on admission ##MDD -aware on zoloft ##Late to Care with Hx of non-compliance -Aware, infant to be adopted by family living in [place], [place]. CM consulted. ##Complex Living situation -Patient does not have permanent home. CM on board. PCP: LAURA: Amos Plan: Discharge this am Addendum - Attending - Attending Attestation Date/Time: 03/28/20 0900 I personally evaluated the patient and discussed the management with Dr. Haider. I agree with the History, Examination, Assessment and Plan documented above with any addition or exceptions noted below. Increase metformin to 1000 mg BID. She was instructed to call and schedule a f/u visit at [facility] on Wednesday yesterday but states she forgot. She states she has a home BP cuff. BP in hospital WNL. asked her to continue to check and record BP BID and glucose QID and bring log to clinic wednesday. discussed s/s of severe feature and was given strict RTC precautions. Given her history of non-complia nce, i would not be surprised if she did not follow up as instructed. D/C home today.
[2020-03-28] MEDS: Ferrous Sulfate 325 MG TAB PO SCH (06:56)
[2020-03-28] MEDS: metFORMIN 500 MG TAB PO SCH (07:49)
[2020-03-28] MEDS: Docusate Calcium (SURFAK) 240 MG CAP PO SCH (07:49)
[2020-03-28] MEDS: Prenatal Vitamin 1 TAB PO SCH (07:49)
[2020-03-28 08:30] VITALS: BP 138/73; TEMP 99.3
[2020-03-28 22:53] LABS: GC by PCR Not Detected (NotDetected)
[2020-03-31 17:29] LABS: EliA Thy New Method **** NEW METHOD ****; Thyroglobulin Antibody Less than 12.0 IU/mL (<40 Normal); Thyroid Peroxidase IgG Ab 9.2 IU/mL (<25 Normal)
== END 2020-03-28 10:45 | disposition home or self-care (01) | DRG 807 ==
LOC: L&D 17:15 → 3SE 03-26 15:43
PROVIDERS: ADMIT Family Medicine; ATTEND Family Medicine
PROC: 3E0P7VZ Introduction of Hormone into Female Reproductive, Via Natural or Artificial Opening (ICD-10-PCS; 2020-03-25)
PROC: 3E033VJ Introduction of Other Hormone into Peripheral Vein, Percutaneous Approach (ICD-10-PCS; 2020-03-25)
PROC: 10E0XZZ Delivery of Products of Conception, External Approach (ICD-10-PCS; principal; 2020-03-26)
DX: O24.424 Gestational diabetes mellitus in childbirth, insulin controlled (principal); Z37.0 Single live birth; Z3A.37 37 weeks gestation of pregnancy; O14.94 Unspecified pre-eclampsia, complicating childbirth; Z20.828 Contact with and (suspected) exposure to other viral communicable diseases; O99.284 Endocrine, nutritional and metabolic diseases complicating childbirth; E03.9 Hypothyroidism, unspecified; O99.214 Obesity complicating childbirth; E66.01 Morbid (severe) obesity due to excess calories; O99.02 Anemia complicating childbirth; D50.9 Iron deficiency anemia, unspecified; O99.344 Other mental disorders complicating childbirth; F32.9 Major depressive disorder, single episode, unspecified; O99.824 Streptococcus B carrier state complicating childbirth; O76 Abnormality in fetal heart rate and rhythm complicating labor and delivery; Z86.19 Personal history of other infectious and parasitic diseases; Z79.899 Other long term (current) drug therapy; Z79.890 Hormone replacement therapy; Z28.21 Immunization not carried out because of patient refusal; Z91.19 Patient's noncompliance with other medical treatment and regimen
CPT/HCPCS: 36415; 36416; 51702; 80053; 80306; 82570; 84156; 85027; 86376; 86593; 86780; 86800; 86850; 86900; 86901; 87340; 87591; 88307; J0595; J1815; J2405; J2540; J2590; J3490; S0020